=== PATIENT | male | born 1985 | race African-American/Black ===

== ENCOUNTER 2019-01-17 23:48 | Inpatient (IN) | payer SELFPAY ==
--- NOTE | 2019-01-18 00:04 | EKG REPORT ---
SEVERITY:- ABNORMAL ECG - SINUS RHYTHM LVH WITH IVCD AND SECONDARY REPOL ABNRM : Confirmed by: Blessing Ballesteros 18-Jan-2019 00:02:55
[2019-01-18 00:58] LABS: APPEARANCE,URINE CLEAR; BILIRUBIN,URINE NEGATIVE (NEGATIVE); COLOR,URINE YELLOW; GLUCOSE, URINE NEGATIVE (NEGATIVE); KETONES,URINE NEGATIVE (NEGATIVE); LEUKOCYTE ESTERASE,URINE NEGATIVE (NEGATIVE); NITRITE,URINE NEGATIVE (NEGATIVE); PROTEIN,URINE 30 mg/dL (NEGATIVE); URINE SPECIFIC GRAVITY 1.012; UROBILINOGEN,URINE NEGATIVE mg/dL (<2.0)
[2019-01-18] MEDS ORDERED: IPRATROPIUM/ALBUTEROL 0.5-2.5 MG/3 ML AMPUL NEB ONE (05:30)
--- NOTE | 2019-01-18 05:40 | ER Document Report ---
ED Medical Screen (RME) - General Chief Complaint: Chest Pain > 30 Stated Complaint: CHEST PAIN Time Seen by Provider: 01/18/19 05:23 Notes: 33-year-old male with chief complaint of pain in his abdomen, and, pain in his chest, and shortness of breath. Symptoms have been going on mildly for 2 days, worse tonight. Denies fever, cough. He states he has a history of CHF, hypertension, and asthma. TRAVEL OUTSIDE OF THE [place] IN LAST 30 DAYS: No - Related Data Allergies/Adverse Reactions: shellfish derived Allergy (Verified 01/18/19 05:37) Physical Exam - Vital signs Vitals: Temp Pulse Resp BP Pulse Ox 98.0 F 89 14 160/108 H 97 01/18/19 00:08 01/18/19 00:08 01/18/19 00:08 01/18/19 00:08 01/18/19 00:08 - Respiratory Breath sounds: Wheezing - Faint expiratory wheezes heard throughout. No tachypnea. No labored breathing. No rales noted. Course - Re-evaluation Re-evalutation: Patient with some expiratory wheezes on exam. Tenderness in the upper abdomen. No overt rales or lower extremity swelling noted. Workup pending. I have greeted and performed a rapid initial assessment of this patient. A comprehensive ED assessment and evaluation of the patient, analysis of test results and completion of the medical decision making process will be conducted by additional ED providers. - Vital Signs Vital signs: Temp Pulse Resp BP Pulse Ox 98.0 F 89 14 160/108 H 97 01/18/19 00:08 01/18/19 00:08 01/18/19 00:08 01/18/19 00:08 01/18/19 00:08 - Laboratory Laboratory results interpreted by me: 01/18/19 00:30 Urine Protein 30 H
[2019-01-18 05:48] LABS: ALANINE AMINOTRANSFERASE 24 U/L (21-72); ALBUMIN 4.1 g/dL (3.5-5.0); ALKALINE PHOSPHATASE 37 U/L (38-126); ANION GAP 7 (5-19); ASPARTATE AMINO TRANSFERASE 28 U/L (17-59); BILIRUBIN,DIRECT 0.3 mg/dL (0.0-0.4); BLOOD UREA NITROGEN 17 mg/dL (7-20); CALCIUM 9.4 mg/dL (8.4-10.2); CARBON DIOXIDE 26 mmol/L (22-30); CHLORIDE 107 mmol/L (98-107); GLUCOSE 100 mg/dL (75-110); POTASSIUM 4.1 mmol/L (3.6-5.0); SODIUM 140.3 mmol/L (137-145); TOTAL PROTEIN 7.4 g/dL (6.3-8.2)
[2019-01-18 05:55] LABS: ABSOLUTE BASOPHILS # (AUTO) 0.1 10^3/uL (0.0-0.2); ABSOLUTE LYMPHOCYTES (AUTO) 1.4 10^3/uL (0.5-4.7); ABSOLUTE MONOCYTES (AUTO) 0.5 10^3/uL (0.1-1.4); BASOPHILS % (AUTO) 0.7 % (0-2); EOSINOPHILS % (AUTO) 0.6 % (0-6); HEMATOCRIT 36.7 % (37.9-51.0); LYMPHOCYTES % (AUTO) 17.9 % (13-45); MEAN CORPUSCULAR HEMOGLOBIN 27.7 pg (27.0-33.4); MEAN CORPUSCULAR HGB CONC 32.8 g/dL (32.0-36.0); MEAN CORPUSCULAR VOLUME 84 fl (80-97); MONOCYTES % (AUTO) 5.7 % (3-13); PLATELET COUNT 254 10^3/uL (150-450); RED BLOOD COUNT 4.35 10^6/uL (4.35-5.55); RED CELL DISTRIBUTION WIDTH 14.5 % (11.5-14.0); SEGMENTED NEUTROPHILS % (AUTO) 75.1 % (42-78); TOTAL CELLS COUNTED % (AUTO) 100 %
[2019-01-18 05:59] LABS: NT PRO BNP 2250 pg/mL (<125)
[2019-01-18 06:01] LABS: TROPONIN I < 0.012 ng/mL
--- NOTE | 2019-01-18 06:09 | RADIOLOGY REPORT (SQ) ---
CLINICAL HISTORY: shortness of breath COMPARISON: None. TECHNIQUE: XR CHEST 1 VIEW 01/18/2019 5:30 AM CDT FINDINGS: The heart is borderline in size. Lungs are clear without consolidation, atelectasis, mass or edema. There is no pleural effusion. There is no pneumothorax. There are no acute osseous findings. IMPRESSION: Clear lungs.
[2019-01-18] MEDS ORDERED: NITROGLYCERIN 2% OINTMENT 1 GM PACKET TP ONE (06:32)
[2019-01-18] MEDS ORDERED: FUROSEMIDE INJ/PF 20 MG/2 ML SDV IV ONE (06:32)
[2019-01-18] MEDS ORDERED: ACETAMINOPHEN 325 MG TABLET PO ONE (06:32)
--- NOTE | 2019-01-18 06:36 | ER Document Report ---
ED Cardiac - General Chief Complaint: Chest Pain > 30 Stated Complaint: CHEST PAIN Time Seen by Provider: 01/18/19 05:23 Notes: 33-year-old male to the emergency department chief complaint of chest pain. Patient has long-standing history of uncontrolled hypertension. History of CHF. Here from out of town. Denies any tobacco or drug use. States he began to have significant chest pain last night and has continued throughout the morning. Still having chest pain at this time. Takes medication for his blood pressure but does not know the names. Denies any other major symptoms at this time. TRAVEL OUTSIDE OF THE [place] IN LAST 30 DAYS: No - HPI Patient complains to provider of: Chest pain, Chest tightness Was the onset of pain: Gradual Is the pain a: Chronic problem Quality of pain: Constant Severity now: Moderate Severity at worst: Moderate Pain level currently: 3 Cardiac risk factors: Hypertension, Hx CHF Positive cardiac history: Yes - Related Data Allergies/Adverse Reactions: shellfish derived Allergy (Verified 01/18/19 05:37) Past Medical History - General Information source: Patient - Social History Smoking Status: Current Every Day Smoker Cigarette use (# per day): Yes Frequency of alcohol use: None Drug Abuse: None Lives with: Family Family History: Hypertension Patient has suicidal ideation: No Patient has homicidal ideation: No - Past Medical History Cardiac Medical History: Reports: Hx Heart Attack - 2019 Renal/ Medical History: Denies: Hx Peritoneal Dialysis Past Surgical History: Reports: Hx Cardiac Catheterization Review of Systems - Review of Systems Notes: Constitutional: denies: Chills, Diaphoresis, Fever, Malaise, Weakness EENT: denies: Eye discharge, Blurred vision, Tearing, Double vision, Nose congestion, Nose discharge, Throat swelling, Mouth pain Cardiovascular: denies: Palpitations, Heart racing, Orthopnea,+ Dyspnea, +Chest pain Respiratory: denies: Cough, Hurts to breathe, Wheezing, +Shortness of breath Gastrointestinal: denies: Abdominal pain, Diarrhea, Nausea, Vomiting, Black stools, bright red blood in stool Genitourinary: denies: Burning, Dysuria, Discharge, Frequency, Flank pain, Hematuria Musculoskeletal: denies: Joint pain, Joint swelling, Muscle pain, Muscle stiffness, back pain Hematologic/Lymphatic: denies: Anemia, Easy bleeding, Easy bruising, Blood clots Neurological/Psychological: denies: Confusion, Dementia, Depression, Loss of consciousness Skin: No lesions, no masses, no skin breakdown, no abscesses Physical Exam - Vital signs Vitals: Temp Pulse Resp BP Pulse Ox 98.0 F 89 14 160/108 H 97 01/18/19 00:08 01/18/19 00:08 01/18/19 00:08 01/18/19 00:08 01/18/19 00:08 Interpretation: Hypertensive - General General appearance: Appears well, Alert - HEENT Head: Normocephalic, Atraumatic Eyes: Normal Pupils: PERRL - Respiratory Respiratory status: No respiratory distress Chest status: Nontender Breath sounds: Normal Chest palpation: Normal - Cardiovascular Rhythm: Regular Heart sounds: Normal auscultation Murmur: No - Abdominal Inspection: Normal Distension: No distension Bowel sounds: Normal Tenderness: Nontender Organomegaly: No organomegaly - Back Back: Normal, Nontender - Extremities General upper extremity: Normal inspection, Nontender, Normal color, Normal ROM, Normal temperature General lower extremity: Normal inspection, Nontender, Normal color, Normal ROM, Normal temperature, Normal weight bearing. No: Bebo's sign - Neurological Neuro grossly intact: Yes Cognition: Normal Orientation: AAOx4 Jefferson Coma Scale Eye Opening: Spontaneous Anel Coma Scale Verbal: Oriented Jefferson Coma Scale Motor: Obeys Commands Anel Coma Scale Total: 15 Speech: Normal Motor strength normal: LUE, RUE, LLE, RLE Sensory: Normal - Psychological Associated symptoms: Normal affect, Normal mood - Skin Skin Temperature: Warm Skin Moisture: Dry Skin Color: Normal Course - Re-evaluation Re-evalutation: 01/18/19 10:07 Patient has significant hypertension with significant LVH and T wave inversions with some mild ST segment depression in the anterior lateral leads. High risk patient. Very young and currently in congestive heart failure. The patient's if not more. I will consider this a hypertensive emergency in the setting of chest pain. I have given him nitroglycerin as well as Lasix. He is diuresing well. I have consulted with the hospitalist. At this time will admit to the hospitalist in stable condition. Patient has had 2 sets of cardiac labs based on hospitalist request for second troponin before admitting here. Chest x-ray he does have some cardiomegaly but no signs of florid failure. His mediastinum looks normal. 01/18/19 10:09 Laboratory 01/18/19 01/18/19 01/18/19 00:30 05:05 05:05 WBC 8.0 RBC 4.35 Hgb 12.0 L Hct 36.7 L MCV 84 MCH 27.7 MCHC 32.8 RDW 14.5 H Plt Count 254 Seg Neutrophils % 75.1 Lymphocytes % 17.9 Monocytes % 5.7 Eosinophils % 0.6 Basophils % 0.7 Absolute Neutrophils 6.0 Absolute Lymphocytes 1.4 Absolute Monocytes 0.5 Absolute Eosinophils 0.0 Absolute Basophils 0.1 Sodium 140.3 Potassium 4.1 Chloride 107 Carbon Dioxide 26 Anion Gap 7 BUN 17 Creatinine 1.43 H Est GFR ( Amer) > 60 Est GFR (Non-Af Amer) 57 L Glucose 100 Calcium 9.4 Total Bilirubin 2.0 H Direct Bilirubin 0.3 Neonat Total Bilirubin Not Reportable Neonat Direct Bilirubin Not Reportable Neonat Indirect Bili Not Reportable AST 28 ALT 24 Alkaline Phosphatase 37 L Troponin I NT-Pro-B Natriuret Pep Total Protein 7.4 Albumin 4.1 Lipase 91.0 Urine Color YELLOW Urine Appearance CLEAR Urine pH 6.0 Ur Specific [place] 1.012 Urine Protein 30 H Urine Glucose (UA) NEGATIVE Urine Ketones NEGATIVE Urine Blood NEGATIVE Urine Nitrite NEGATIVE Urine Bilirubin NEGATIVE Urine Urobilinogen NEGATIVE Ur Leukocyte Esterase NEGATIVE Urine WBC (Auto) 1 Urine RBC (Auto) 1 U Hyaline Cast (Auto) 1 Urine Bacteria (Auto) Urine Red Cell Clumps Urine WBC Clumps Squamous Epi Cells Auto U Non-Squamous Epis Auto Calcium Carbonate Cryst Calcium Phosphate Cryst Calcium Oxalate Cr Auto Leucine Crystals Cystine Crystals Uric Acid Cryst (Auto) Triple Phos Cryst (Auto) Tyrosine Crystals Amorphous Sediment Auto Cellular Casts Epithelial Casts (Auto) Fatty Casts Granular Casts (Auto) Waxy Casts (Auto) Broad Casts RBC Casts (Auto) WBC Casts (Auto) Urine Mucus (Auto) RARE U Trichomonas (Auto) Ur Yeast w Hyphae Urine Yeast (Budding) Urine Ascorbic Acid NEGATIVE Urine Opiates Screen Urine Methadone Screen Ur Barbiturates Screen Ur Phencyclidine Scrn Ur Amphetamines Screen U Benzodiazepines Scrn Urine Cocaine Screen U Marijuana (THC) Screen 01/18/19 01/18/19 01/18/19 05:05 06:55 06:55 WBC RBC Hgb Hct MCV MCH MCHC RDW Plt Count Seg Neutrophils % Lymphocytes % Monocytes % Eosinophils % Basophils % Absolute Neutrophils Absolute Lymphocytes Absolute Monocytes Absolute Eosinophils Absolute Basophils Sodium Potassium Chloride Carbon Dioxide Anion Gap BUN Creatinine Est GFR ( Amer) Est GFR (Non-Af Amer) Glucose Calcium Total Bilirubin Direct Bilirubin Neonat Total Bilirubin Neonat Direct Bilirubin Neonat Indirect Bili AST ALT Alkaline Phosphatase Troponin I < 0.012 NT-Pro-B Natriuret Pep 2250 H Total Protein Albumin Lipase Urine Color Cancelled Urine Appearance Cancelled Urine pH Cancelled Ur Specific [place] Cancelled Urine Protein Cancelled Urine Glucose (UA) Cancelled Urine Ketones Cancelled Urine Blood Cancelled Urine Nitrite Cancelled Urine Bilirubin Cancelled Urine Urobilinogen Cancelled Ur Leukocyte Esterase Cancelled Urine WBC (Auto) Cancelled Urine RBC (Auto) Cancelled U Hyaline Cast (Auto) Cancelled Urine Bacteria (Auto) Cancelled Urine Red Cell Clumps Cancelled Urine WBC Clumps Cancelled Squamous Epi Cells Auto Cancelled U Non-Squamous Epis Auto Cancelled Calcium Carbonate Cryst Cancelled Calcium Phosphate Cryst Cancelled Calcium Oxalate Cr Auto Cancelled Leucine Crystals Cancelled Cystine Crystals Cancelled Uric Acid Cryst (Auto) Cancelled Triple Phos Cryst (Auto) Cancelled Tyrosine Crystals Cancelled Amorphous Sediment Auto Cancelled Cellular Casts Cancelled Epithelial Casts (Auto) Cancelled Fatty Casts Cancelled Granular Casts (Auto) Cancelled Waxy Casts (Auto) Cancelled Broad Casts Cancelled RBC Casts (Auto) Cancelled WBC Casts (Auto) Cancelled Urine Mucus (Auto) Cancelled U Trichomonas (Auto) Cancelled Ur Yeast w Hyphae Cancelled Urine Yeast (Budding) Cancelled Urine Ascorbic Acid Cancelled Urine Opiates Screen NEGATIVE Urine Methadone Screen NEGATIVE Ur Barbiturates Screen NEGATIVE Ur Phencyclidine Scrn NEGATIVE Ur Amphetamines Screen NEGATIVE U Benzodiazepines Scrn NEGATIVE Urine Cocaine Screen NEGATIVE U Marijuana (THC) Screen NEGATIVE 01/18/19 08:50 WBC RBC Hgb Hct MCV MCH MCHC RDW Plt Count Seg Neutrophils % Lymphocytes % Monocytes % Eosinophils % Basophils % Absolute Neutrophils Absolute Lymphocytes Absolute Monocytes Absolute Eosinophils Absolute Basophils Sodium Potassium Chloride Carbon Dioxide Anion Gap BUN Creatinine Est GFR ( Amer) Est GFR (Non-Af Amer) Glucose Calcium Total Bilirubin Direct Bilirubin Neonat Total Bilirubin Neonat Direct Bilirubin Neonat Indirect Bili AST ALT Alkaline Phosphatase Troponin I < 0.012 NT-Pro-B Natriuret Pep Total Protein Albumin Lipase Urine Color Urine Appearance Urine pH Ur Specific [place] Urine Protein Urine Glucose (UA) Urine Ketones Urine Blood Urine Nitrite Urine Bilirubin Urine Urobilinogen Ur Leukocyte Esterase Urine WBC (Auto) Urine RBC (Auto) U Hyaline Cast (Auto) Urine Bacteria (Auto) Urine Red Cell Clumps Urine WBC Clumps Squamous Epi Cells Auto U Non-Squamous Epis Auto Calcium Carbonate Cryst Calcium Phosphate Cryst Calcium Oxalate Cr Auto Leucine Crystals Cystine Crystals Uric Acid Cryst (Auto) Triple Phos Cryst (Auto) Tyrosine Crystals Amorphous Sediment Auto Cellular Casts Epithelial Casts (Auto) Fatty Casts Granular Casts (Auto) Waxy Casts (Auto) Broad Casts RBC Casts (Auto) WBC Casts (Auto) Urine Mucus (Auto) U Trichomonas (Auto) Ur Yeast w Hyphae Urine Yeast (Budding) Urine Ascorbic Acid Urine Opiates Screen Urine Methadone Screen Ur Barbiturates Screen Ur Phencyclidine Scrn Ur Amphetamines Screen U Benzodiazepines Scrn Urine Cocaine Screen U Marijuana (THC) Screen Chest X-Ray 01/18/19 05:30 IMPRESSION: Clear lungs. - Vital Signs Vital signs: Temp Pulse Resp BP Pulse Ox 98.0 F 89 12 177/119 H 97 01/18/19 00:08 01/18/19 00:08 01/18/19 08:00 01/18/19 09:01 01/18/19 08:00 - Laboratory Result Diagrams: 01/18/19 05:05 01/18/19 05:05 Laboratory results interpreted by me: 01/18/19 01/18/19 01/18/19 00:30 05:05 05:05 Hgb 12.0 L Hct 36.7 L RDW 14.5 H Creatinine 1.43 H Est GFR (Non-Af Amer) 57 L Total Bilirubin 2.0 H Alkaline Phosphatase 37 L NT-Pro-B Natriuret Pep Urine Protein 30 H 01/18/19 05:05 Hgb Hct RDW Creatinine Est GFR (Non-Af Amer) Total Bilirubin Alkaline Phosphatase NT-Pro-B Natriuret Pep 2250 H Urine Protein - EKG Interpretation by Mt EKG shows normal: Sinus rhythm, QRS Complexes. abnormal: ST-T Waves - T wave inversions anterior lateral leads. Voltage: Consistant with LVH - Secondary repolarization abnormality Critical Care Note - Critical Care Note Total time excluding time spent on procedures (mins): 45 Comments: Hypertensive emergency, chest pain Discharge - Discharge Clinical Impression: Hypertensive emergency without congestive heart failure Condition: Good Disposition: ADMITTED INPATIENT Admitting Provider: Jessy (Hospitalist) Unit Admitted: [facility]
[2019-01-18 07:20] LABS: URINE AMPHETAMINES SCREEN NEGATIVE; URINE BARBITURATES SCREEN NEGATIVE; URINE BENZODIAZEPINES SCREEN NEGATIVE; URINE COCAINE SCREEN NEGATIVE; URINE MARIJUANA (THC) SCREEN NEGATIVE; URINE METHADONE SCREEN NEGATIVE; URINE PHENCYCLIDINE SCREEN NEGATIVE
[2019-01-18] MEDS ORDERED: NITROGLYCERIN/D5W 50 MG/250 ML RTUINJ IV PRN (11:49)
--- NOTE | 2019-01-18 14:01 | PDOC H&P ---
History of Present Illness Admission Date/PCP: 01/18/19 10:17 Patient complains of: chest pain History of Present Illness: AMIE VARGAS is a 33 year old male with a PMH of HTN, asthma, and personal history of CHF who presented with chest pain and elevated blood pressures. He says he has been having left sided chest pain in the past 3 days, 4/10 in intensity, non-radiating and described as tightness. He also reports it is exertional. He says he has also been short of breath in the same time period when he walks beyond 50 ft. Denies PND or orthopnea. He does report of abdominal bloating as well. Denies history of GERD. In the ER, blood pressures were elevated 201/129. EKG shows T wave inversions on the lateral leads with normal troponins. He was given a dose of Lasix and nitro. Upon my encounter, he is chest pain free and is comfortable. Repeat blood pressure is 175/125. He says he was told by a physician last year that he has CHF but is not able to tell me more details. He does say he had a cath done at [place], [place] in July 2018 and another cath done in [place], [place] in Nov 2017. He says he was told there was some mild disease and did not require any stenting. Past Medical History Cardiac Medical History: Reports: Myocardial Infarction - 2019 Past Surgical History Past Surgical History: Reports: Cardiac Catheterization Social History Lives with: Family Smoking Status: Current Every Day Smoker Family History Family History: Hypertension Parental Family History Reviewed: Yes - mom and dad both had ID-pxt unsure of age when they had ID Children Family History Reviewed: No Sibling(s) Family History Reviewed.: No Medication/Allergy Allergies/Adverse Reactions: shellfish derived Allergy (Verified 01/18/19 05:37) Review of Systems All systems: reviewed and no additional remarkable complaints except as stated - as mentioned in HPI Physical Exam Vital Signs: Temp Pulse Resp BP Pulse Ox 98.0 F 89 13 171/125 H 99 01/18/19 00:08 01/18/19 00:08 01/18/19 11:41 01/18/19 11:41 01/18/19 11:41 Intake & Output 01/17/19 01/18/19 01/19/19 06:59 06:59 06:59 Weight 211 lb 3.245 oz General appearance: PRESENT: no acute distress, well-developed, well-nourished Head exam: PRESENT: atraumatic, normocephalic Eye exam: PRESENT: conjunctiva pink, EOMI, PERRLA. ABSENT: scleral icterus Ear exam: PRESENT: normal external ear exam Mouth exam: PRESENT: moist, tongue midline Neck exam: ABSENT: carotid bruit, JVD, lymphadenopathy, thyromegaly Respiratory exam: PRESENT: clear to auscultation curtis. ABSENT: rales, rhonchi, wheezes Cardiovascular exam: PRESENT: RRR. ABSENT: diastolic murmur, rubs, systolic murmur Pulses: PRESENT: normal dorsalis pedis pul GI/Abdominal exam: PRESENT: normal bowel sounds, soft. ABSENT: distended, guarding, mass, organolmegaly, rebound, tenderness Rectal exam: PRESENT: deferred Neurological exam: PRESENT: alert, awake, oriented to person, oriented to place, oriented to time, oriented to situation, CN II-XII grossly intact. ABSENT: motor sensory deficit Results Laboratory Results: 01/18/19 05:05 01/18/19 05:05 01/18/19 01/18/19 01/18/19 00:30 05:05 05:05 WBC 8.0 RBC 4.35 Hgb 12.0 L Hct 36.7 L MCV 84 MCH 27.7 MCHC 32.8 RDW 14.5 H Plt Count 254 Seg Neutrophils % 75.1 Lymphocytes % 17.9 Monocytes % 5.7 Eosinophils % 0.6 Basophils % 0.7 Absolute Neutrophils 6.0 Absolute Lymphocytes 1.4 Absolute Monocytes 0.5 Absolute Eosinophils 0.0 Absolute Basophils 0.1 Sodium 140.3 Potassium 4.1 Chloride 107 Carbon Dioxide 26 Anion Gap 7 BUN 17 Creatinine 1.43 H Est GFR ( Amer) > 60 Est GFR (Non-Af Amer) 57 L Glucose 100 Calcium 9.4 Total Bilirubin 2.0 H AST 28 ALT 24 Alkaline Phosphatase 37 L Total Protein 7.4 Albumin 4.1 Lipase 91.0 Urine Color YELLOW Urine Appearance CLEAR Urine pH 6.0 Ur Specific [place] 1.012 Urine Protein 30 H Urine Glucose (UA) NEGATIVE Urine Ketones NEGATIVE Urine Blood NEGATIVE Urine Nitrite NEGATIVE Ur Leukocyte Esterase NEGATIVE Urine WBC (Auto) 1 Urine RBC (Auto) 1 01/18/19 06:55 WBC RBC Hgb Hct MCV MCH MCHC RDW Plt Count Seg Neutrophils % Lymphocytes % Monocytes % Eosinophils % Basophils % Absolute Neutrophils Absolute Lymphocytes Absolute Monocytes Absolute Eosinophils Absolute Basophils Sodium Potassium Chloride Carbon Dioxide Anion Gap BUN Creatinine Est GFR ( Amer) Est GFR (Non-Af Amer) Glucose Calcium Total Bilirubin AST ALT Alkaline Phosphatase Total Protein Albumin Lipase Urine Color Cancelled Urine Appearance Cancelled Urine pH Cancelled Ur Specific [place] Cancelled Urine Protein Cancelled Urine Glucose (UA) Cancelled Urine Ketones Cancelled Urine Blood Cancelled Urine Nitrite Cancelled Ur Leukocyte Esterase Cancelled Urine WBC (Auto) Cancelled Urine RBC (Auto) Cancelled 01/18/19 01/18/19 05:05 08:50 Troponin I < 0.012 < 0.012 NT-Pro-B Natriuret Pep 2250 H Impressions: Chest X-Ray 01/18/19 05:30 IMPRESSION: Clear lungs. Assessment and Plan - Diagnosis (1) Hypertensive emergency without congestive heart failure Is this a current diagnosis for this admission?: Yes Plan: Will start patient on nitroglycerin drip. He says he takes medications for his HTN but is not able to recall them. Will have pharmacy verify home meds. (2) CHF (congestive heart failure) Qualifiers: Heart failure chronicity: unspecified Is this a current diagnosis for this admission?: Yes Plan: He does not appear to be in acute CHF. He says he had an echo done in July 2018. Will request previous EKGs, echo and cath reports from both hospitals mentioned above. - Time Time Spent with patient: 25-34 minutes
[2019-01-18] MEDS: PANTOPRAZOLE SODIUM 40 MG TABLET.DR PO SCH (16:28)
[2019-01-18] MEDS ORDERED: METOPROLOL TARTRATE PF/INJ 5 MG/5 ML SDV IV ONE ×2 (20:30→21:00)
[2019-01-18] MEDS: HYDRALAZINE HCL INJ/PF 20 MG/1 ML SDV IV PRN (21:32)
[2019-01-19] MEDS ORDERED: ACETAMINOPHEN 325 MG TABLET PO PRN (01:57)
[2019-01-19] MEDS: PANTOPRAZOLE SODIUM 40 MG TABLET.DR PO SCH (05:46)
[2019-01-19] MEDS ORDERED: METOPROLOL TARTRATE 100 MG TABLET PO ONE (09:45)
[2019-01-19] MEDS ORDERED: HYDRALAZINE HCL 50 MG TABLET PO ONE (09:46)
[2019-01-19] MEDS: FONDAPARINUX SODIUM INJ 2.5 MG/0.5 ML DISP.SYRIN SUBCUT SCH ×2 (11:00→11:07)
[2019-01-19] MEDS: HYDRALAZINE HCL 50 MG TABLET PO SCH ×2 (13:16→21:19)
--- NOTE | 2019-01-19 14:02 | PDOC PROGRESS REPORT ---
Subjective Progress Note for:: 01/19/19 Subjective:: This is 73 years old black male patient with past medical history of obesity, hypertension and history of congestive heart failure as reported by the patient himself presented with chief complaint of chest pain. The patient described the chest pain stabbing type localized to his left side nonradiating. When he presented to ER his blood pressure was 175/125. Patient has been started on nitroglycerin drip. This morning when I see the patient his blood pressure t rended down to 170/115 he is given metoprolol 100 mg and hydralazine 50 mg stat. His latest blood pressure is 150/96. The patient claims that chest pain has subsided. Reason For Visit: HTN EMERGENCY Physical Exam Vital Signs: Temp Pulse Resp BP Pulse Ox 98.2 F 86 16 171/110 H 98 01/19/19 08:31 01/19/19 11:30 01/19/19 05:52 01/19/19 11:30 01/19/19 08:31 Intake & Output 01/18/19 01/19/19 01/20/19 06:59 06:59 06:59 Intake Total 166 Balance 166 Weight 95.8 kg 93.8 kg General appearance: PRESENT: no acute distress, obese, well-developed, well- nourished Head exam: PRESENT: atraumatic, normocephalic Eye exam: PRESENT: conjunctiva pink, EOMI, PERRLA. ABSENT: scleral icterus Ear exam: PRESENT: normal external ear exam Mouth exam: PRESENT: moist, tongue midline Neck exam: ABSENT: carotid bruit, JVD, lymphadenopathy, thyromegaly Respiratory exam: PRESENT: clear to auscultation curtis. ABSENT: rales, rhonchi, wheezes Cardiovascular exam: PRESENT: RRR. ABSENT: diastolic murmur, rubs, systolic murmur Pulses: PRESENT: normal dorsalis pedis pul Vascular exam: PRESENT: normal capillary refill GI/Abdominal exam: PRESENT: normal bowel sounds, soft. ABSENT: distended, guarding, mass, organolmegaly, rebound, tenderness Rectal exam: PRESENT: deferred Extremities exam: PRESENT: full ROM. ABSENT: calf tenderness, clubbing, pedal edema Neurological exam: PRESENT: alert, awake, oriented to person, oriented to place, oriented to time, oriented to situation, CN II-XII grossly intact. ABSENT: motor sensory deficit Psychiatric exam: PRESENT: appropriate affect, normal mood. ABSENT: homicidal ideation, suicidal ideation Skin exam: PRESENT: dry, intact, warm. ABSENT: cyanosis, rash Results Laboratory Results: 01/18/19 05:05 01/18/19 05:05 01/18/19 01/18/19 05:05 08:50 Troponin I < 0.012 < 0.012 NT-Pro-B Natriuret Pep 2250 H Impressions: Chest X-Ray 01/18/19 05:30 IMPRESSION: Clear lungs. Assessment and Plan - Diagnosis (1) Hypertensive emergency without congestive heart failure Is this a current diagnosis for this admission?: Yes Plan: Patient has been on hydralazine metoprolol p.o. I will taper and discontinue the nitro drip. If patient continues to have persistent accelerated hypertension we will check his renal arterial duplex. (2) History of CHF (congestive heart failure) Is this a current diagnosis for this admission?: Yes Plan: Patient reports this has CHF. He does not have any shortness of breath or fascial or leg edema. Echocardiogram requested. (3) Nonobstructive coronary artery disease Is this a current diagnosis for this admission?: Yes Plan: Patient reported he has cats in 2018 in November and July was her reportedly mild obstruction (4) Obesity (BMI 30.0-34.9) Is this a current diagnosis for this admission?: Yes Plan: Lifestyle modification advised.
[2019-01-19] MEDS: METOPROLOL TARTRATE 50 MG TABLET PO SCH (21:20)
[2019-01-20] MEDS: HYDRALAZINE HCL INJ/PF 20 MG/1 ML SDV IV PRN (03:29)
[2019-01-20] MEDS: HYDRALAZINE HCL 50 MG TABLET PO SCH ×3 (05:52→21:06)
[2019-01-20] MEDS: PANTOPRAZOLE SODIUM 40 MG TABLET.DR PO SCH (05:52)
[2019-01-20] MEDS: FONDAPARINUX SODIUM INJ 2.5 MG/0.5 ML DISP.SYRIN SUBCUT SCH (08:46)
[2019-01-20] MEDS ORDERED: CLONIDINE HCL 0.2 MG TABLET PO ONE (10:30)
[2019-01-20] MEDS: METOPROLOL TARTRATE 50 MG TABLET PO SCH ×2 (10:34→21:05)
[2019-01-20] MEDS ORDERED: HYDROCHLOROTHIAZIDE 50 MG TABLET PO ONE (15:00)
--- NOTE | 2019-01-20 16:08 | PDOC PROGRESS REPORT ---
Subjective Progress Note for:: 01/20/19 Subjective:: I seen patient resting in bed comfortably. He states his chest pain is improving. Despite being on metoprolol 50 mg twice daily and hydralazine 50 mg 3 times a day his blood pressure is still on the higher side this morning when I evaluated him his blood pressure which was 146/115. I gave him a stat dose of clonidine 0.2 mg p.o. I added to his regimen hydrochlorothiazide 25 mg p.o. daily. His potential discharge for tomorrow. If his blood pressure is well co ntrolled Reason For Visit: HTN EMERGENCY Physical Exam Vital Signs: Temp Pulse Resp BP Pulse Ox 97.9 F 79 12 141/90 H 99 01/20/19 11:33 01/20/19 11:33 01/20/19 11:33 01/20/19 11:33 01/20/19 11:33 Intake & Output 01/19/19 01/20/19 01/21/19 06:59 06:59 06:59 Intake Total 166 2604 118 Output Total 0 Balance 166 2604 118 Weight 93.8 kg 93.8 kg General appearance: PRESENT: no acute distress, well-developed, well-nourished Head exam: PRESENT: atraumatic, normocephalic Eye exam: PRESENT: conjunctiva pink, EOMI, PERRLA. ABSENT: scleral icterus Ear exam: PRESENT: normal external ear exam Mouth exam: PRESENT: moist, tongue midline Neck exam: ABSENT: carotid bruit, JVD, lymphadenopathy, thyromegaly Respiratory exam: PRESENT: clear to auscultation curtis. ABSENT: rales, rhonchi, wheezes Cardiovascular exam: PRESENT: RRR. ABSENT: diastolic murmur, rubs, systolic murmur Pulses: PRESENT: normal dorsalis pedis pul Vascular exam: PRESENT: normal capillary refill GI/Abdominal exam: PRESENT: normal bowel sounds, soft. ABSENT: distended, guarding, mass, organolmegaly, rebound, tenderness Rectal exam: PRESENT: deferred Extremities exam: PRESENT: full ROM. ABSENT: calf tenderness, clubbing, pedal edema Neurological exam: PRESENT: alert, awake, oriented to person, oriented to place, oriented to time, oriented to situation, CN II-XII grossly intact. ABSENT: motor sensory deficit Psychiatric exam: PRESENT: appropriate affect, normal mood. ABSENT: homicidal ideation, suicidal ideation Skin exam: PRESENT: dry, intact, warm. ABSENT: cyanosis, rash Results Laboratory Results: 01/18/19 05:05 01/18/19 05:05 01/18/19 01/18/19 05:05 08:50 Troponin I < 0.012 < 0.012 NT-Pro-B Natriuret Pep 2250 H Impressions: Chest X-Ray 01/18/19 05:30 IMPRESSION: Clear lungs. Assessment and Plan - Diagnosis (1) Hypertensive emergency without congestive heart failure Is this a current diagnosis for this admission?: Yes Plan: Relatively improving (2) History of CHF (congestive heart failure) Is this a current diagnosis for this admission?: Yes Plan: Patient told me he does not have actual congestive heart failure but he was told he has a risk factor. (3) Nonobstructive coronary artery disease Is this a current diagnosis for this admission?: Yes Plan: Patient reported he has cats in 2018 in November and July was her reportedly mild obstruction (4) Obesity (BMI 30.0-34.9) Is this a current diagnosis for this admission?: Yes Plan: Lifestyle modification advised.
--- NOTE | 2019-01-20 21:00 | XCELERA REPORT ---
[address] [address] Transthoracic Echocardiogram Report Name: AMIE VARGAS Age: 33 yrs Gender: Male : 1985 Patient Status: Inpatient Patient Location: [address] [place] [address] Study Date: 01/19/2019 07:44 PM Height: 66 in Weight: 206 lb BSA: 2.0 m2 Procedure: A two-dimensional transthoracic echocardiogram with color flow and Doppler was performed. Study Quality: Fair. Reason For Study: CHF History: CHF. Ordering Physician: SUNIL FERNANDEZ Performed By: Amelia Celis Interpretation Summary The left ventricle is moderately dilated. LV EF is Less than 15% Left ventricular systolic function is severely reduced. There is severe global hypokinesis of the left ventricle. There is no thrombus. No ASD ,VSD , or PFO seen. The right ventricle is normal in size and function. The right atrium is normal. The left atrium is moderately dilated. There is no evidence of mitral valve prolapse. There is no vegetation seen on the mitral valve. There is no mitral valve stenosis. There is a mild amount of mitral regurgitation There is no aortic valvular vegetation. There is no aortic valve stenosis There is no LVOT obstruction. No aortic regurgitation is present. There is no tricuspid stenosis. There is a trace amount of tricuspid regurgitation There is mild pulmonary hypertension by echo RVSP is 32 to 37 mm of Hg , with RA mean of 5 to 10. There is no pulmonic valvular stenosis. There is no pulmonic valvular regurgitation. The aortic root is normal size. The inferior vena cava appeared normal and decreased > 50% with respiration (RAP 5-10 mmHg) There is no pericardial effusion. MMode/2D Measurements & Calculations RVDd: 2.8 cm LVIDd: 6.1 cm FS: 12.4 % Ao root diam: 2.8 cm IVSd: 0.97 cm LVIDs: 5.4 cm EDV(Teich): Ao root area: LVPWd: 1.1 cm 188.0 ml 6.1 cm2 ESV(Teich): LA dimension: 4.7 cm 138.8 ml EF(Teich): 26.2 % LVLd ap4: 7.9 cm SV(MOD-sp4): EDV(MOD-sp4): 24.0 ml 85.0 ml LVLs ap4: 7.6 cm ESV(MOD-sp4): 61.0 ml EF(MOD-sp4): 28.2 % Doppler Measurements & Calculations MV E max chanel: MV P1/2t max chanel: Ao V2 max: LV V1 max P.9 cm/sec 115.4 cm/sec 120.2 cm/sec 4.6 mmHg MV A max chanel: MV P1/2t: 46.2 msec Ao max P.8 mmHgLV V1 max: 51.8 cm/sec MVA(P1/2t): 4.8 cm2 107.6 cm/sec MV E/A: 1.7 MV dec slope: 732.2 cm/sec2 MV dec time: 0.15 sec PA V2 max: TR max chanel: MV P1/2t-pr_phl: 69.0 cm/sec 258.9 cm/sec 46.2 msec PA max PG: TR max P.8 mmHg 1.9 mmHg Left Ventricle There is normal left ventricular wall thickness. The left ventricle is moderately dilated. LV EF is Less than 15%. Left ventricular systolic function is severely reduced. There is severe global hypokinesis of the left ventricle. There is no thrombus. No ASD ,VSD , or PFO seen. Right Ventricle The right ventricle is normal in size and function. Atria The right atrium is normal. The left atrium is moderately dilated. Mitral Valve There is no evidence of mitral valve prolapse. There is no vegetation seen on the mitral valve. There is no mitral valve stenosis. There is a mild amount of mitral regurgitation. Aortic Valve There is no aortic valvular vegetation. There is no aortic valve stenosis. There is no LVOT obstruction. No aortic regurgitation is present. Tricuspid Valve There is no tricuspid stenosis. There is a trace amount of tricuspid regurgitation. There is mild pulmonary hypertension by echo. RVSP is 32 to 37 mm of Hg , with RA mean of 5 to 10. Pulmonic Valve There is no pulmonic valvular stenosis. There is no pulmonic valvular regurgitation. Great Vessels The aortic root is normal size. The inferior vena cava appeared normal and decreased > 50% with respiration (RAP 5-10 mmHg). Effusions There is no pericardial effusion. : SUNIL FERNANDEZ > Kelly Kerr
[2019-01-21] MEDS: HYDRALAZINE HCL 50 MG TABLET PO SCH ×3 (05:55→21:15)
[2019-01-21] MEDS: PANTOPRAZOLE SODIUM 40 MG TABLET.DR PO SCH (05:55)
[2019-01-21] MEDS: FONDAPARINUX SODIUM INJ 2.5 MG/0.5 ML DISP.SYRIN SUBCUT SCH (09:50)
[2019-01-21] MEDS: HYDROCHLOROTHIAZIDE 25 MG TABLET PO SCH (09:54)
[2019-01-21] MEDS ORDERED: METOPROLOL TARTRATE 50 MG TABLET PO SCH (10:00)
[2019-01-21] MEDS ORDERED: METOPROLOL TARTRATE 100 MG TABLET PO SCH (10:00)
[2019-01-21] MEDS ORDERED: CARVEDILOL 12.5 MG TABLET PO ONE ×2 (10:45→14:45)
[2019-01-21] MEDS ORDERED: LISINOPRIL 10 MG TABLET PO ONE ×2 (10:45→14:45)
--- NOTE | 2019-01-21 12:24 | PDOC CONSULTATION ---
Consultation Consult Date: 01/21/19 Consult reason:: congestive heart failure History of Present Illness Admission Date/PCP: 01/18/19 10:17 History of Present Illness: AMIE VARGAS is a 33 year old male is a very pleasant male with PMH of systolic heart failure diagnosed around a year ago in [place], HTN was admitted with c/o chest pain fwq days ago and had uncontrolled HTN on admission. His medical therapy has been adjusted and he had an echo which showed LVEF < 15%. WE were consulted today for assistance with co-management of CHF. Pt seen at bedside and claims after his diagnosis of heart failure he has had a cardiac cath somewhere in [place] and was told he did not have any significant blockage in his arteries. He was never told he will need an ICD and since he says he keeps moving from place to place because of his work with [employer] he does not follow with any regular physician. He claims he was developing distension of his abdomen lately which made him short of breath and so he came in for admission. He denies any antonio chest pain/palpitations/ dizziness/ swelling of legs. He denies missing his meds. He claims he feels much better now. Past Medical History Cardiac Medical History: Reports: Congestive Heart Failure, Myocardial Infarction - 2019, Hypertension Psychiatric Medical History: Denies: Depression Past Surgical History Past Surgical History: Reports: Cardiac Catheterization Social History Lives with: Family Smoking Status: Former Smoker Last Time Smoked: 2018 Frequency of Alcohol Use: Occasional Hx Recreational Drug Use: No Drugs: None Hx Prescription Drug Abuse: No Family History Family History: Hypertension Parental Family History Reviewed: Yes Children Family History Reviewed: No Sibling(s) Family History Reviewed.: Yes Medication/Allergy Home Medications: Carvedilol [Coreg 12.5 mg Tablet] 12.5 mg PO Q12 01/20/19 Furosemide [Lasix 20 mg Tablet] 20 mg PO DAILY 01/20/19 Hydralazine HCl [Apresoline 50 mg Tablet] 50 mg PO Q8 01/20/19 Allergies/Adverse Reactions: shellfish derived Allergy (Verified 01/18/19 05:37) Review of Systems Cardiovascular: PRESENT: dyspnea on exertion Respiratory: PRESENT: dyspnea Gastrointestinal: PRESENT: other - abdominal fullness that has improved now Physical Exam Vital Signs: Temp Pulse Resp BP Pulse Ox 97.7 F 82 14 146/98 H 97 01/21/19 08:04 01/21/19 08:04 01/21/19 08:04 01/21/19 08:04 01/21/19 08:04 Intake & Output 01/20/19 01/21/19 01/22/19 06:59 06:59 06:59 Intake Total 2604 1642 Output Total 0 Balance 2604 1642 Weight 93.8 kg 93.6 kg General appearance: PRESENT: no acute distress Head exam: PRESENT: atraumatic, normocephalic Neck exam: PRESENT: full ROM Respiratory exam: PRESENT: clear to auscultation curtis Cardiovascular exam: PRESENT: RRR, systolic murmur Pulses: PRESENT: normal carotid pulses, normal dorsalis pedis pul, +2 pedal pulses bilateral GI/Abdominal exam: PRESENT: normal bowel sounds, soft Results Laboratory Results: 01/18/19 05:05 01/18/19 05:05 01/18/19 01/18/19 05:05 08:50 Troponin I < 0.012 < 0.012 NT-Pro-B Natriuret Pep 2250 H EKG Comments: EKG reviewed and showed sinus rhythm with left ventricular hypertrophy and secondary repolarization changes. Impressions: Chest X-Ray 01/18/19 05:30 IMPRESSION: Clear lungs. Status: Image reviewed by me Assessment & Plan - Diagnosis (1) Chronic combined systolic and diastolic CHF (congestive heart failure) Is this a current diagnosis for this admission?: Yes (2) Hypertension Qualifiers: Hypertension type: unspecified Qualified Code(s): I10 - Essential (primary) hypertension Is this a current diagnosis for this admission?: Yes (3) Chronic kidney disease Qualifiers: Chronic kidney disease stage: unspecified stage Qualified Code(s): N18.9 - Chronic kidney disease, unspecified Is this a current diagnosis for this admission?: Yes - Notes Notes: Reviewed EKG, telemetry, imaging test and labs. 33-year-old -[place] male with combined systolic and diastolic heart failure presumed nonischemic so far based on patient's history and admitted with hypertensive urgency which has improved now. We recommend getting medical records from [place] to review his previous cardiac workup. His telemetry review showed two 3 beat episodes of nonsustained ventricular tachycardia earlier today. We recommend checking electrolytes and thyroid function to ensure no reversible causes for an SVT noted. We reviewed his medications and he is on guideline directed heart failure therapy with aspirin, statin, beta-bogdan, NETO inhibitor, hydralazine and diuretic therapy. Recommend adding nitrate therapy to hydralazine for better afterload reduction. Consideration should be made for evaluation for secondary hypertension as patient is on multiple antihypertensive medications with blood pressure still mildly elevated. Reviewed his current echocardiogram which shows LVEF less than 15% with mild mitral regurgitation. Review of his previous medical records will tell us if his LVEF was less than 35% in the past and then he will be a candidate for implantable cardioverter defibrillator placement now for primary prophylaxis of sudden cardiac . If his EF was above 35% in the past then he should be considered for LifeVest placement for 90 days at the end of which is LVEF should be reevaluated. We discussed at length with patient about his current diagnosis, prognosis and need for optimal medical therapy and healthy lifestyle. Will reevaluate his afterload control in the morning. - Time Time Spent: 50 to 70 Minutes Medications reviewed and adjusted accordingly: Yes
--- NOTE | 2019-01-21 13:20 | PDOC PROGRESS REPORT ---
Subjective Progress Note for:: 01/21/19 Subjective:: Patient seen and examined at bedside. He is awake alert oriented. He reports this is shortness of breath has been subsiding. His echocardiogram reported as left ventricular systolic function severely reduced and there is severe global hypokinesis of left ventricle. His ejection fraction found to be less than 15%. Patient has been evaluated this morning by Dr. Baxter and his input is appreciated. Reason For Visit: HTN EMERGENCY Physical Exam Vital Signs: Temp Pulse Resp BP Pulse Ox 98.0 F 80 17 134/93 H 97 01/21/19 11:42 01/21/19 11:42 01/21/19 11:42 01/21/19 11:42 01/21/19 11:42 Intake & Output 01/20/19 01/21/19 01/22/19 06:59 06:59 06:59 Intake Total 2604 1642 200 Output Total 0 Balance 2604 1642 200 Weight 93.8 kg 93.6 kg General appearance: PRESENT: no acute distress, well-developed, well-nourished Head exam: PRESENT: atraumatic, normocephalic Eye exam: PRESENT: conjunctiva pink, EOMI, PERRLA. ABSENT: scleral icterus Ear exam: PRESENT: normal external ear exam Mouth exam: PRESENT: moist, tongue midline Neck exam: ABSENT: carotid bruit, JVD, lymphadenopathy, thyromegaly Respiratory exam: PRESENT: clear to auscultation curtis. ABSENT: rales, rhonchi, wheezes Cardiovascular exam: PRESENT: RRR. ABSENT: diastolic murmur, rubs, systolic murmur Pulses: PRESENT: normal dorsalis pedis pul Vascular exam: PRESENT: normal capillary refill GI/Abdominal exam: PRESENT: normal bowel sounds, soft. ABSENT: distended, guarding, mass, organolmegaly, rebound, tenderness Rectal exam: PRESENT: deferred Extremities exam: PRESENT: full ROM. ABSENT: calf tenderness, clubbing, pedal edema Neurological exam: PRESENT: alert, awake, oriented to person, oriented to place, oriented to time, oriented to situation, CN II-XII grossly intact. ABSENT: motor sensory deficit Psychiatric exam: PRESENT: appropriate affect, normal mood. ABSENT: homicidal ideation, suicidal ideation Skin exam: PRESENT: dry, intact, warm. ABSENT: cyanosis, rash Results Laboratory Results: 01/18/19 05:05 01/18/19 05:05 01/18/19 01/18/19 05:05 08:50 Troponin I < 0.012 < 0.012 NT-Pro-B Natriuret Pep 2250 H Impressions: Chest X-Ray 01/18/19 05:30 IMPRESSION: Clear lungs. Assessment and Plan - Diagnosis (1) Systolic congestive heart failure Qualifiers: Heart failure chronicity: acute on chronic Qualified Code(s): I50.23 - Acute on chronic systolic (congestive) heart failure Is this a current diagnosis for this admission?: Yes Plan: Patient had a heart catheterization in January in July 2018 and reportedly the result was no obstruction. Most probably patient has nonischemic cardiomyopathy with ejection fraction of less than 15% with severe global hypokinesis of the left ventricle. We will maximize his cardioprotective medications. (2) Hypertensive emergency without congestive heart failure Is this a current diagnosis for this admission?: Yes Plan: His blood pressure is improving. (3) Nonobstructive coronary artery disease Is this a current diagnosis for this admission?: Yes Plan: Patient reported he has cats in 2018 in November and July was her reportedly mild obstruction (4) Obesity (BMI 30.0-34.9) Is this a current diagnosis for this admission?: Yes Plan: Lifestyle modification advised.
[2019-01-21] MEDS: LISINOPRIL 10 MG TABLET PO SCH (21:15)
[2019-01-21] MEDS: CARVEDILOL 12.5 MG TABLET PO SCH (21:15)
[2019-01-21] MEDS: ATORVASTATIN CALCIUM 80 MG TABLET PO SCH (21:15)
[2019-01-21] MEDS ORDERED: ATORVASTATIN CALCIUM 20 MG TABLET PO SCH (22:00)
[2019-01-22] MEDS: PANTOPRAZOLE SODIUM 40 MG TABLET.DR PO SCH (05:16)
[2019-01-22] MEDS: HYDRALAZINE HCL 50 MG TABLET PO SCH ×3 (05:16→21:26)
[2019-01-22] MEDS: FONDAPARINUX SODIUM INJ 2.5 MG/0.5 ML DISP.SYRIN SUBCUT SCH (08:26)
[2019-01-22] MEDS: CARVEDILOL 12.5 MG TABLET PO SCH ×2 (09:44→21:24)
[2019-01-22] MEDS: LISINOPRIL 10 MG TABLET PO SCH ×2 (09:44→21:25)
[2019-01-22] MEDS: HYDROCHLOROTHIAZIDE 25 MG TABLET PO SCH (09:45)
[2019-01-22] MEDS: FUROSEMIDE 40 MG TABLET PO SCH (09:45)
--- NOTE | 2019-01-22 10:48 | PDOC PROGRESS REPORT ---
Subjective Progress Note for:: 01/22/19 Reason For Visit: HTN EMERGENCY Patient seen at bedside and denies any complaints of chest pain or shortness of breath. He denies any swelling in his lower extremities. Physical Exam Vital Signs: Temp Pulse Resp BP Pulse Ox 97.7 F 76 12 158/90 H 97 01/22/19 08:07 01/22/19 08:07 01/22/19 08:07 01/22/19 08:07 01/22/19 08:07 Intake & Output 01/21/19 01/22/19 01/23/19 06:59 06:59 06:59 Intake Total 1642 909 Balance 1642 909 Weight 93.6 kg 92.6 kg General appearance: PRESENT: no acute distress Head exam: PRESENT: atraumatic, normocephalic Neck exam: PRESENT: full ROM Respiratory exam: PRESENT: clear to auscultation curtis Cardiovascular exam: PRESENT: +S1, +S2 Pulses: PRESENT: +2 pedal pulses bilateral GI/Abdominal exam: PRESENT: normal bowel sounds, soft Extremities exam: PRESENT: full ROM Neurological exam: PRESENT: alert, oriented to time, CN II-XII grossly intact Results Laboratory Results: 01/18/19 05:05 01/18/19 05:05 01/18/19 01/18/19 05:05 08:50 Troponin I < 0.012 < 0.012 NT-Pro-B Natriuret Pep 2250 H Impressions: Chest X-Ray 01/18/19 05:30 IMPRESSION: Clear lungs. Assessment & Plan - Diagnosis (1) Chronic combined systolic and diastolic CHF (congestive heart failure) Is this a current diagnosis for this admission?: Yes (2) Hypertension Qualifiers: Hypertension type: unspecified Qualified Code(s): I10 - Essential (primary) hypertension Is this a current diagnosis for this admission?: Yes (3) Chronic kidney disease Qualifiers: Chronic kidney disease stage: unspecified stage Qualified Code(s): N18.9 - Chronic kidney disease, unspecified Is this a current diagnosis for this admission?: Yes - Notes Notes: Patient appears euvolemic on exam with afterload not well controlled yet. Recommended yesterday to add long-acting nitrate to hydralazine for better afterload reduction and spoke to the primary team to add isosorbide dinitrate. Also still awaiting check of electrolytes to ensure serum potassium and magnesium are within normal limits. Reviewed telemetry and no more runs of ventricular tachycardia noted. Patient with asymptomatic sinus bradycardia at night. Recommend LifeVest placement for primary prophylaxis of sudden cardiac and I have filled out the form for LifeVest placement. Still awaiting medical records from [place] to review his last cardiac cath to ensure that he does not have any obstructive coronary artery disease. Patient will need a repeat echocardiogram in 90 days to evaluate need for ICD placement if his EF does not improve above 35%. Continue him on guideline directed heart failure therapy with aspirin, statin, beta-bogdan, NETO inhibitor, diuretic, hydralazine and please add isosorbide dinitrate. I have given patient my information if he wishes to follow with me as an outpatient and [place] or else he is also been provided information about local community health consultant Dr. Kerr and Dr. Whitten as he will need close outpatient follow-up for management of his systolic heart failure and hypertension. - Time Time with patient: 15-25 minutes
[2019-01-22 11:14] LABS: CHOLESTEROL 203.79 mg/dL (0-200); TRIGLYCERIDES 112 mg/dL (<150)
[2019-01-22 11:25] LABS: DIRECT LDL 140 mg/dL (<100)
--- NOTE | 2019-01-22 14:59 | PDOC PROGRESS REPORT ---
Subjective Progress Note for:: 01/22/19 Subjective:: Patient resting in bed comfortably. He has been doing well. He denied shortness of breath or chest pain. Patient is potential discharge for tomorrow after LifeVest placement. Reason For Visit: HTN EMERGENCY Physical Exam Vital Signs: Temp Pulse Resp BP Pulse Ox 97.9 F 75 16 150/92 H 97 01/22/19 11:57 01/22/19 11:57 01/22/19 11:57 01/22/19 11:57 01/22/19 11:57 Intake & Output 01/21/19 01/22/19 01/23/19 06:59 06:59 06:59 Intake Total 1642 909 318 Balance 1642 909 318 Weight 93.6 kg 92.6 kg General appearance: PRESENT: no acute distress Head exam: PRESENT: atraumatic, normocephalic Eye exam: PRESENT: conjunctiva pink, EOMI, PERRLA. ABSENT: scleral icterus Ear exam: PRESENT: normal external ear exam Mouth exam: PRESENT: moist, tongue midline Neck exam: ABSENT: carotid bruit, JVD, lymphadenopathy, thyromegaly Respiratory exam: PRESENT: clear to auscultation curtis. ABSENT: rales, rhonchi, wheezes Cardiovascular exam: PRESENT: RRR. ABSENT: diastolic murmur, rubs, systolic murmur Pulses: PRESENT: normal dorsalis pedis pul Vascular exam: PRESENT: normal capillary refill GI/Abdominal exam: PRESENT: normal bowel sounds, soft. ABSENT: distended, guarding, mass, organolmegaly, rebound, tenderness Rectal exam: PRESENT: deferred Extremities exam: PRESENT: full ROM. ABSENT: calf tenderness, clubbing, pedal edema Neurological exam: PRESENT: alert, awake, oriented to person, oriented to place, oriented to time, oriented to situation, CN II-XII grossly intact. ABSENT: m otor sensory deficit Psychiatric exam: PRESENT: appropriate affect, normal mood. ABSENT: homicidal ideation, suicidal ideation Skin exam: PRESENT: dry, intact, warm. ABSENT: cyanosis, rash Results Laboratory Results: 01/18/19 05:05 01/18/19 05:05 01/22/19 10:45 Triglycerides 112 Cholesterol 203.79 H LDL Cholesterol Direct 140 H VLDL Cholesterol 22.0 HDL Cholesterol 36 L 01/18/19 01/18/19 05:05 08:50 Troponin I < 0.012 < 0.012 NT-Pro-B Natriuret Pep 2250 H Impressions: Chest X-Ray 01/18/19 05:30 IMPRESSION: Clear lungs. Assessment and Plan - Diagnosis (1) Systolic congestive heart failure Qualifiers: Heart failure chronicity: acute on chronic Qualified Code(s): I50.23 - Acute on chronic systolic (congestive) heart failure Is this a current diagnosis for this admission?: Yes Plan: Patient had a heart catheterization in January in July 2018 and reportedly the result was no obstruction. Most probably patient has nonischemic cardiomyopathy with ejection fraction of less than 15% with severe global hypokinesis of the left ventricle. We will maximize his cardioprotective medications. Patient has been evaluated by snuff grinder and screener who recommended LifeVest placement. (2) Hypertensive emergency without congestive heart failure Is this a current diagnosis for this admission?: Yes Plan: His blood pressure is improving. (3) Nonobstructive coronary artery disease Is this a current diagnosis for this admission?: Yes Plan: Patient reported he has cats in 2018 in November and July was her reportedly mild obstruction (4) Obesity (BMI 30.0-34.9) Is this a current diagnosis for this admission?: Yes Plan: Lifestyle modification advised.
[2019-01-22] MEDS ORDERED: ISOSORBIDE DINITRATE 20 MG TABLET PO ONE (16:00)
[2019-01-22] MEDS: ATORVASTATIN CALCIUM 80 MG TABLET PO SCH (21:26)
[2019-01-23] MEDS: HYDRALAZINE HCL 50 MG TABLET PO SCH ×2 (05:27→14:31)
[2019-01-23] MEDS: PANTOPRAZOLE SODIUM 40 MG TABLET.DR PO SCH (05:28)
[2019-01-23] MEDS ORDERED: ISOSORBIDE DINITRATE 20 MG TABLET PO SCH (06:00)
[2019-01-23 07:12] LABS: ANION GAP 10 (5-19); BLOOD UREA NITROGEN 19 mg/dL (7-20); CALCIUM 9.6 mg/dL (8.4-10.2); CARBON DIOXIDE 31 mmol/L (22-30); CHLORIDE 97 mmol/L (98-107); GLUCOSE 98 mg/dL (75-110); POTASSIUM 3.4 mmol/L (3.6-5.0); SODIUM 138.1 mmol/L (137-145)
[2019-01-23] MEDS: FONDAPARINUX SODIUM INJ 2.5 MG/0.5 ML DISP.SYRIN SUBCUT SCH (07:38)
--- NOTE | 2019-01-23 09:51 | PDOC DISCHARGE SUMMARY ---
General - Admit/Disc Date/PCP Admission Date/Primary Care Provider: 01/18/19 10:17 Discharge Date: 01/23/19 - Discharge Diagnosis (1) Systolic congestive heart failure Is this a current diagnosis for this admission?: Yes (2) Hypertensive emergency without congestive heart failure Is this a current diagnosis for this admission?: Yes (3) Nonobstructive coronary artery disease Is this a current diagnosis for this admission?: Yes (4) Obesity (BMI 30.0-34.9) Is this a current diagnosis for this admission?: Yes - Additional Information Home Medications: Carvedilol [Coreg 12.5 mg Tablet] 12.5 mg PO Q12 01/20/19 Furosemide [Lasix 20 mg Tablet] 20 mg PO DAILY 01/20/19 Hydralazine HCl [Apresoline 50 mg Tablet] 50 mg PO Q8 01/20/19 History of Present Illness History of Present Illness: AMIE VARGAS is a 33 year old male with a PMH of HTN, asthma, and personal history of CHF who presented with chest pain and elevated blood pressures. He says he has been having left sided chest pain in the past 3 days, 4/10 in intensity, non-radiating and described as tightness. He also reports it is exertional. He says he has also been short of breath in the same time period when he walks beyond 50 ft. Denies PND or orthopnea. He does report of abdominal bloating as well. Denies history of GERD. In the ER, blood pressures were elevated 201/129. EKG shows T wave inversions on the lateral leads with normal troponins. He was given a dose of Lasix and nitro. Upon my encounter, he is chest pain free and is comfortable. Repeat blood pressure is 175/125. He says he was told by a physician last year that he has CHF but is not able to tell me more details. He does say he had a cath done at [facility] [place], [place] in July 2018 and another cath done in [place], [place] in Nov 2017. He says he was told there was some mild disease and did not require any stenting. Hospital Course Hospital Course: This is 73 years old black male patient with past medical history of obesity, hypertension and history of congestive heart failure as reported by the patient himself presented with chief complaint of chest pain. The patient described the chest pain stabbing type localized to his left side nonradiating. When he presented to ER his blood pressure was 175/125. Patient has been started on nitroglycerin drip. Initially I started him with metoprolol 100 mg p.o. twice daily and hydralazine 50 mg twice daily. With metoprolol and hydralazine the blood pressure slightly improved so I have to add additional antihypertensive agents this including hydrochlorothiazide 25 mg p.o. daily and lisinopril 20 mg twice a day. He has echocardiogram which shows severely reduced left ventricular function, global hypokinesis of the left ventricle and his ejection fraction is less than 15%. I consulted who evaluated the patient and ordered for him to wear a LifeVest. He also recommended echocardiogram after 3 months. I changed his metoprolol to carvedilol 25 mg twice daily and also started him on isosorbide dinitrate 20 mg 3 times daily. His latest blood pressure is 106/69. I will send him home with Coreg 25 mg twice daily, Lasix 40 mg p.o. daily, lisinopril 20 mg p.o. daily, Lipitor 80 mg p.o. nightly, isosorbide dinitrate 20 mg p.o. daily and hydralazine 50 mg p.o. 3 times daily. He needs follow-up with marriage and family social worker in 1 week. Physical Exam Vital Signs: Temp Pulse Resp BP Pulse Ox 97.2 F 67 16 108/69 92 01/23/19 07:21 01/23/19 07:21 01/23/19 07:21 01/23/19 07:21 01/23/19 07:21 Intake & Output 01/22/19 01/23/19 01/24/19 06:59 06:59 06:59 Intake Total 909 909 Balance 909 909 Weight 92.6 kg 92.1 kg General appearance: PRESENT: no acute distress, well-developed, well-nourished Head exam: PRESENT: atraumatic, normocephalic Eye exam: PRESENT: conjunctiva pink, EOMI, PERRLA. ABSENT: scleral icterus Ear exam: PRESENT: normal external ear exam Mouth exam: PRESENT: moist, tongue midline Neck exam: ABSENT: carotid bruit, JVD, lymphadenopathy, thyromegaly Respiratory exam: PRESENT: clear to auscultation curtis. ABSENT: rales, rhonchi, wheezes Cardiovascular exam: PRESENT: RRR. ABSENT: diastolic murmur, rubs, systolic murmur Pulses: PRESENT: normal dorsalis pedis pul Vascular exam: PRESENT: normal capillary refill GI/Abdominal exam: PRESENT: normal bowel sounds, soft. ABSENT: distended, guarding, mass, organolmegaly, rebound, tenderness Rectal exam: PRESENT: deferred Extremities exam: PRESENT: full ROM. ABSENT: calf tenderness, clubbing, pedal edema Neurological exam: PRESENT: alert, awake, oriented to person, oriented to place, oriented to time, oriented to situation, CN II-XII grossly intact. ABSENT: motor sensory deficit Psychiatric exam: PRESENT: appropriate affect, normal mood. ABSENT: homicidal ideation, suicidal ideation Skin exam: PRESENT: dry, intact, warm. ABSENT: cyanosis, rash Results Laboratory Results: 01/18/19 05:05 01/23/19 06:12 01/22/19 01/23/19 10:45 06:12 Sodium 138.1 Potassium 3.4 L Chloride 97 L Carbon Dioxide 31 H Anion Gap 10 BUN 19 Creatinine 1.51 H Est GFR ( Amer) > 60 Est GFR (Non-Af Amer) 53 L Glucose 98 Calcium 9.6 Triglycerides 112 Cholesterol 203.79 H LDL Cholesterol Direct 140 H VLDL Cholesterol 22.0 HDL Cholesterol 36 L 01/18/19 01/18/19 05:05 08:50 Troponin I < 0.012 < 0.012 NT-Pro-B Natriuret Pep 2250 H Impressions: Chest X-Ray 01/18/19 05:30 IMPRESSION: Clear lungs. Qualifiers - * PATIENT BEING DISCHARGED WITH ANY OF THE FOLLOWING DIAGNOSIS: Heart Failure VTE patient discharged on overlapping Therapy?: No Reason(s) for not prescribing Overlap Therapy:: Not indicated Stroke Pt being discharged on Anti-thrombolytic therapy?: No Reason(s) for not prescribing Anti-thrombolytic therapy:: Not indicated Stroke Pt being discharged on Anti-coagulation therapy?: No Reason(s) for not prescribing Anti-coagulation therapy:: Not indicated Stroke Pt being discharged on Statins?: No Reason(s) for not prescribing Statins therapy:: Not indicated W[place] Pt being discharged on Aspirin therapy?: No Reason(s) for not prescribing Aspirin therapy:: Not indicated W[place] Pt being discharged on Statins?: No Reason(s) for not prescribing Statin therapy:: Not indicated [place] Pt discharged ACEI/ARBS?: No Reason(s) for not prescribing ACEI/ARBS:: Not indicated HF Pt being discharged on ACEI for LVEF less than 40%?: Yes HF Pt being discharged on ARBS for LVEF less than 40%?: Yes HF Pt with Afib discharged with Warfarin?: No Reason(s) for not prescribing Warfarin:: Not indicated HF Pt discharged on evidence-based Beta Riana:: Yes
[2019-01-23] MEDS: FUROSEMIDE 40 MG TABLET PO SCH (10:51)
[2019-01-23] MEDS: LISINOPRIL 10 MG TABLET PO SCH (10:52)
[2019-01-23] MEDS: HYDROCHLOROTHIAZIDE 25 MG TABLET PO SCH (10:52)
[2019-01-23] MEDS: CARVEDILOL 12.5 MG TABLET PO SCH (10:52)
[2019-01-23 14:37] VITALS: BP 135/90
== END 2019-01-23 14:40 | disposition home or self-care (01) | DRG 305 ==
LOC: ER 23:48 → EH 01-18 10:17 → 3S 01-18 18:25
PROVIDERS: ADMIT Internal Medicine; ATTEND Internal Medicine
PROC: 3E0F73Z Introduction of Anti-inflammatory into Respiratory Tract, Via Natural or Artificial Opening (ICD-10-PCS; principal; 2019-01-18)
DX: I16.1 Hypertensive emergency (principal); I25.10 Atherosclerotic heart disease of native coronary artery without angina pectoris; E66.9 Obesity, unspecified; N18.9 Chronic kidney disease, unspecified; F17.210 Nicotine dependence, cigarettes, uncomplicated; I12.9 Hypertensive chronic kidney disease with stage 1 through stage 4 chronic kidney disease, or unspecified chronic kidney disease; I25.5 Ischemic cardiomyopathy; I25.2 Old myocardial infarction; Z68.30 Body mass index [BMI] 30.0-30.9, adult; Z87.891 Personal history of nicotine dependence; Z79.899 Other long term (current) drug therapy; Z91.013 Allergy to seafood; Z82.49 Family history of ischemic heart disease and other diseases of the circulatory system
CPT/HCPCS: 36415; 71045; 80048; 80053; 80061; 80307; 81001; 83690; 83880; 84484; 85025; 93005; 93010; 93306; 96374; 99291; J0360; J1652; J1940; J3490; J7620

== ENCOUNTER 2019-01-28 09:54 | Emergency (ER) | payer SELFPAY ==
[2019-01-28] MEDS ORDERED: NORMAL SALINE 1000 ML 1,000 ML IV ONE (10:12)
--- NOTE | 2019-01-28 10:14 | ER Document Report ---
ED Medical Screen (RME) - General Chief Complaint: Abdominal Pain Stated Complaint: ABDOMINAL PAIN/DIARRHEA/HEADACHE Time Seen by Provider: 01/28/19 10:10 Mode of Arrival: Wheelchair Information source: Patient Notes: 34-year-old male presents to ED for epigastric pain that started this morning. He states the diarrhea started yesterday between yesterday and today he is probably had about 20 stools. He states that he was seen in the emergency room on Wednesday and they increased his fluid pill which she is on Lasix from 20 mg to 40 mg. He states he has had more stools ever since they increased his fluid pill. He does have a history of high blood pressure heart catheterization cholesterol asthma pneumonia. He states they did not find anything on a heart catheterization. He also has reflux disease. Patient is alert oriented respirations regular and unlabored speaking in full sentences. I have greeted and performed a rapid initial assessment of this patient. A comprehensive ED assessment and evaluation of the patient, analysis of test results and completion of medical decision making process will be conducted by an additional ED providers. TRAVEL OUTSIDE OF THE [place] IN LAST 30 DAYS: No - Related Data Allergies/Adverse Reactions: shellfish derived Allergy (Verified 01/28/19 09:58) Past Medical History - Past Medical History Cardiac Medical History: Reports: Hx Congestive Heart Failure, Hx Heart Attack - 2019, Hx Hypertension Renal/ Medical History: Denies: Hx Peritoneal Dialysis Psychiatric Medical History: Denies: Hx Depression Past Surgical History: Reports: Hx Cardiac Catheterization Physical Exam - Vital signs Vitals: Temp Pulse Resp BP Pulse Ox 97.6 F 86 16 162/102 H 98 01/28/19 10:03 01/28/19 10:03 01/28/19 10:03 01/28/19 10:03 01/28/19 10:03 Course - Vital Signs Vital signs: Temp Pulse Resp BP Pulse Ox 97.6 F 86 16 162/102 H 98 01/28/19 10:03 01/28/19 10:03 01/28/19 10:03 01/28/19 10:03 01/28/19 10:03
[2019-01-28 11:22] LABS: ABSOLUTE EOSINOPHILS # (AUTO) 0.1 10^3/uL (0.0-0.6); ABSOLUTE LYMPHOCYTES (AUTO) 1.1 10^3/uL (0.5-4.7); ABSOLUTE MONOCYTES (AUTO) 0.4 10^3/uL (0.1-1.4); ABSOLUTE NEUT (AUTO) 5.1 10^3/uL (1.7-8.2); BASOPHILS % (AUTO) 0.3 % (0-2); HEMATOCRIT 43.3 % (37.9-51.0); HEMOGLOBIN 14.4 g/dL (13.5-17.0); LYMPHOCYTES % (AUTO) 15.9 % (13-45); MEAN CORPUSCULAR HEMOGLOBIN 27.6 pg (27.0-33.4); MEAN CORPUSCULAR HGB CONC 33.3 g/dL (32.0-36.0); MEAN CORPUSCULAR VOLUME 83 fl (80-97); MONOCYTES % (AUTO) 6.4 % (3-13); PLATELET COUNT 280 10^3/uL (150-450); RED BLOOD COUNT 5.23 10^6/uL (4.35-5.55); RED CELL DISTRIBUTION WIDTH 14.1 % (11.5-14.0); SEGMENTED NEUTROPHILS % (AUTO) 76.4 % (42-78); TOTAL CELLS COUNTED % (AUTO) 100 %; WHITE BLOOD COUNT 6.6 10^3/uL (4.0-10.5)
--- NOTE | 2019-01-28 11:27 | ER Document Report ---
ED General - General Chief Complaint: Abdominal Pain Stated Complaint: ABDOMINAL PAIN/DIARRHEA/HEADACHE Time Seen by Provider: 01/28/19 10:10 Mode of Arrival: Wheelchair TRAVEL OUTSIDE OF THE [place] IN LAST 30 DAYS: No - HPI Notes: Patient is a 33-year-old male with a history of HTN, asthma, CHF (ejection fraction <15%) who presents the emergency department complaining of epigastric abdominal cramping with associated watery diarrhea over the past 24 hours. Patient states that his abdominal cramping has since resolved. He is still able to eat and drink, but does have a decreased p.o. intake. He is urinating normally. Pain would never radiate. No surgical history to his abdomen. He was admitted about 10 days ago and had a cardiac evaluation and had his medications adjusted and was told to be on LifeVest at that time as well because of the ejection fraction of less than 15%. Patient states that he has been taking his medicines as directed and has not had any recurring shortness of breath or chest pain that he was admitted for prior. Denies any headache, fever, neck pain, URI, sore throat, chest pain, palpitations, syncope, cough, shortness of breath, wheeze, dyspnea, nausea/vomiting, urinary retention, dysuria, hematuria, back pain, or rash. - Related Data Allergies/Adverse Reactions: shellfish derived Allergy (Verified 01/28/19 09:58) Past Medical History - General Information source: Patient - Social History Smoking Status: Former Smoker Chew tobacco use (# tins/day): No Frequency of alcohol use: Rare Drug Abuse: None Family History: Hypertension Patient has suicidal ideation: No Patient has homicidal ideation: No - Past Medical History Cardiac Medical History: Reports: Hx Congestive Heart Failure, Hx Heart Attack - 2019, Hx Hypertension Renal/ Medical History: Denies: Hx Peritoneal Dialysis GI Medical History: Reports: Hx Gastroesophageal Reflux Disease Psychiatric Medical History: Denies: Hx Depression Past Surgical History: Reports: Hx Cardiac Catheterization Review of Systems - Review of Systems -: Yes All other systems reviewed and negative Physical Exam - Vital signs Vitals: Temp Pulse Resp BP Pulse Ox 97.6 F 86 16 162/102 H 98 01/28/19 10:03 01/28/19 10:03 01/28/19 10:03 01/28/19 10:03 01/28/19 10:03 - Notes Notes: PHYSICAL EXAMINATION: GENERAL: Well-appearing, well-nourished and in no acute distress. HEAD: Atraumatic, normocephalic. EYES: Pupils equal round and reactive to light, extraocular movements intact, sclera anicteric, conjunctiva are normal. ENT: Nares patent and without discharge. oropharynx clear without exudates. No tonsilar hypertrophy or erythema. Moist mucous membranes. NECK: Normal range of motion, supple without lymphadenopathy LUNGS: Breath sounds clear to auscultation bilaterally and equal. No wheezes rales or rhonchi. HEART: Regular rate and rhythm without murmurs, rubs, gallops. ABDOMEN: Soft, nontender, nondistended abdomen. No guarding, no rebound. No masses appreciated. Normal bowel sounds present. No CVA tenderness bilaterall y. Maria neg. No tenderness at McBurney point. Musculoskeletal: FROM to passive/active. Strength 5+/5. Extremities: No cyanosis, clubbing, or edema b/l. Peripheral pulses 2+. Capillary refill less than 3 seconds. NEUROLOGICAL: Normal speech, normal gait. PSYCH: Normal mood, normal affect. SKIN: Warm, Dry, normal turgor, no rashes or lesions noted. Course - Re-evaluation Re-evalutation: 01/28/19 12:22 Patient is an afebrile, well-hydrated, 33-year-old male who presents with abdominal cramping and watery diarrhea, suspect viral. Vitals are acceptable without significant tachycardia, tachypnea, or hypoxia. PE is otherwise unremarkable. Patient's abdomen is soft and nontender. Patient states that he is feeling much better and has not had any diarrhea throughout his stay. He has no abdominal pain. CBC, CMP, lipase unremarkable. Patient was unable to provide us with a stool sample today. Outpt lab given to use if worsening sx's. No further labs or imaging warranted at this time. Patient was given 1 L of fluid and nausea medicine was ordered at triage. Low suspicion/risk for acute appendicitis, bowel obstruction, acute cholecystitis, perforated diverticulitis, incarcerated hernia, pancreatitis, perforated ulcer, peritonitis, sepsis, testicular torsion, or other systemic emergent condition at this time. Patient is aware that his condition can change from initial presentation and he needs to monitor symptoms closely and seek medical attention if any acute changes. Conservative measures otherwise for symptoms. Recheck with PCM in 2-3 days. Consider consult with a continuity tester. Return to the ED with any worsening/concerning symptoms otherwise as reviewed in discharge. Patient is in agreement. - Vital Signs Vital signs: Temp Pulse Resp BP Pulse Ox 97.6 F 86 16 162/102 H 98 01/28/19 10:03 01/28/19 10:03 01/28/19 10:03 01/28/19 10:03 01/28/19 10:03 - Laboratory Result Diagrams: 01/28/19 10:00 01/28/19 10:00 Laboratory results interpreted by me: 01/28/19 01/28/19 10:00 10:00 RDW 14.1 H BUN 23 H Creatinine 1.45 H Est GFR (Non-Af Amer) 56 L Glucose 129 H Total Protein 8.5 H Discharge - Discharge Clinical Impression: Diarrhea Qualifiers: Diarrhea type: unspecified type Qualified Code(s): R19.7 - Diarrhea, unspecified Abdominal pain Qualifiers: Abdominal location: upper abdomen, unspecified Qualified Code(s): R10.10 - Upper abdominal pain, unspecified Condition: Stable Disposition: HOME, SELF-CARE Instructions: Abdominal Pain ([facility]), Diarrhea, Nonspecific ([facility]) Additional Instructions: Maintain adequate fluid and food intake bland diet tylenol if needed Monitor for any worsening symptoms Make sure you are staying hydrated enough to urinate and have normal BM's Recheck with your PCM in 2-3 days Consider consult with Gastroenterology for ongoing/worsening symptoms Return to the ED with any worsening symptoms and/or development of fever, headache, chest pain, palpitations, syncope, shortness of breath, trouble breathing, abdominal pain, n/v/d, blood in stool/urine, weakness, or other worsening symptoms that are concerning to you. Forms: Elevated Blood Pressure, Follow-Up Laboratory Testing Referrals: ILAN CARTER MD [ACTIVE STAFF] - Follow up as needed SMITHA RANDOLPH MD [ACTIVE STAFF] - Follow up as needed
[2019-01-28 11:39] LABS: ALANINE AMINOTRANSFERASE 44 U/L (21-72); ALBUMIN 4.7 g/dL (3.5-5.0); ALKALINE PHOSPHATASE 71 U/L (38-126); ANION GAP 10 (5-19); ASPARTATE AMINO TRANSFERASE 45 U/L (17-59); BILIRUBIN,DIRECT 0.3 mg/dL (0.0-0.4); BILIRUBIN,TOTAL 1.3 mg/dL (0.2-1.3); BLOOD UREA NITROGEN 23 mg/dL (7-20); CALCIUM 9.2 mg/dL (8.4-10.2); CARBON DIOXIDE 26 mmol/L (22-30); CHLORIDE 104 mmol/L (98-107); GLUCOSE 129 mg/dL (75-110); POTASSIUM 4.2 mmol/L (3.6-5.0); SODIUM 139.5 mmol/L (137-145); TOTAL PROTEIN 8.5 g/dL (6.3-8.2)
[2019-01-28 12:33] VITALS: BP 137/81
== END 2019-01-28 12:39 | disposition home or self-care (01) ==
LOC: ER 09:54
DX: R10.13 Epigastric pain (principal); R19.7 Diarrhea, unspecified; I11.0 Hypertensive heart disease with heart failure; I50.9 Heart failure, unspecified; I25.2 Old myocardial infarction; J45.909 Unspecified asthma, uncomplicated; Z91.013 Allergy to seafood; Z87.891 Personal history of nicotine dependence
CPT/HCPCS: 99284; 96360; 96361; 36415; 83690; 85025; 80053; J7030

== ENCOUNTER 2019-05-14 19:44 | Emergency (ER) | payer OTHER ==
[2019-05-14] MEDS ORDERED: ISOSORB DINIT/HYDRALAZINE HCL 20-37.5 MG TABLET PO ONE ×2 (20:32→23:29)
[2019-05-14] MEDS ORDERED: ACETAMINOPHEN 325 MG TABLET PO ONE (20:32)
--- NOTE | 2019-05-14 20:34 | ER Document Report ---
ED Medical Screen (RME) - General Chief Complaint: Headache Stated Complaint: HEADACHE Time Seen by Provider: 05/14/19 20:20 Notes: Patient is a 34-year-old male with a past medical history of congestive heart failure and hypertension who presents the emergency department with a chief complaint of a headache. His headache started at noon today. Patient admits to not taking his isosorbide dinitrate/hydralazine today. He has not taken any Tylenol or ibuprofen to help with his pain. Exam: 5 out of 5 strength in all extremities. I have greeted and performed a rapid initial assessment of this patient. A comprehensive ED assessment and evaluation of the patient, analysis of test results and completion of medical decision making process will be conducted by an additional ED providers. TRAVEL OUTSIDE OF THE [place] IN LAST 30 DAYS: No - Related Data Allergies/Adverse Reactions: shellfish derived Allergy (Verified 01/28/19 09:58) Past Medical History - Social History Frequency of alcohol use: None Drug Abuse: None - Past Medical History Cardiac Medical History: Reports: Hx Congestive Heart Failure, Hx Heart Attack - 2019, Hx Hypertension Renal/ Medical History: Denies: Hx Peritoneal Dialysis GI Medical History: Reports: Hx Gastroesophageal Reflux Disease Psychiatric Medical History: Denies: Hx Depression Past Surgical History: Reports: Hx Cardiac Catheterization Physical Exam - Vital signs Vitals: Temp Pulse Resp BP Pulse Ox 98.0 F 76 18 170/124 H 96 05/14/19 19:54 05/14/19 19:54 05/14/19 19:54 05/14/19 19:54 05/14/19 19:54 Course - Vital Signs Vital signs: Temp Pulse Resp BP Pulse Ox 98.0 F 76 18 170/124 H 96 05/14/19 19:54 05/14/19 19:54 05/14/19 19:54 05/14/19 19:54 05/14/19 19:54
[2019-05-14 22:06] LABS: ALBUMIN 4.6 g/dL (3.5-5.0); ALKALINE PHOSPHATASE 50 U/L (38-126); ANION GAP 10 (5-19); ASPARTATE AMINO TRANSFERASE 23 U/L (17-59); BILIRUBIN,DIRECT 0.2 mg/dL (0.0-0.4); BILIRUBIN,TOTAL 0.7 mg/dL (0.2-1.3); BLOOD UREA NITROGEN 18 mg/dL (7-20); CALCIUM 9.6 mg/dL (8.4-10.2); CARBON DIOXIDE 26 mmol/L (22-30); CHLORIDE 103 mmol/L (98-107); GLUCOSE 106 mg/dL (75-110); POTASSIUM 3.8 mmol/L (3.6-5.0); TOTAL PROTEIN 8.3 g/dL (6.3-8.2)
[2019-05-14 22:33] LABS: ABSOLUTE EOSINOPHILS # (AUTO) 0.1 10^3/uL (0.0-0.6); ABSOLUTE LYMPHOCYTES (AUTO) 1.8 10^3/uL (0.5-4.7); ABSOLUTE MONOCYTES (AUTO) 0.5 10^3/uL (0.1-1.4); ABSOLUTE NEUT (AUTO) 3.8 10^3/uL (1.7-8.2); BASOPHILS % (AUTO) 0.5 % (0-2); EOSINOPHILS % (AUTO) 1.8 % (0-6); HEMATOCRIT 38.4 % (37.9-51.0); HEMOGLOBIN 12.8 g/dL (13.5-17.0); LYMPHOCYTES % (AUTO) 29.3 % (13-45); MEAN CORPUSCULAR HEMOGLOBIN 27.8 pg (27.0-33.4); MEAN CORPUSCULAR HGB CONC 33.3 g/dL (32.0-36.0); MEAN CORPUSCULAR VOLUME 84 fl (80-97); MONOCYTES % (AUTO) 7.3 % (3-13); PLATELET COUNT 263 10^3/uL (150-450); RED CELL DISTRIBUTION WIDTH 13.9 % (11.5-14.0); SEGMENTED NEUTROPHILS % (AUTO) 61.1 % (42-78); TOTAL CELLS COUNTED % (AUTO) 100 %; WHITE BLOOD COUNT 6.3 10^3/uL (4.0-10.5)
[2019-05-14] MEDS ORDERED: LISINOPRIL 10 MG TABLET PO ONE (23:34)
[2019-05-15] MEDS ORDERED: METOCLOPRAMIDE HCL INJ/PF 10 MG/2 ML SDV IV ONE (01:12)
--- NOTE | 2019-05-15 02:50 | RADIOLOGY REPORT (SQ) ---
EXAM DESCRIPTION: [facility]: CT HEAD WITHOUT IV CONTRAST CLINICAL HISTORY: 34 years Male; hypertension, headache TECHNIQUE: Noncontrast CT head. All CT scans at this facility use dose modulation, iterative reconstruction, and/or weight based dosing when appropriate to reduce radiation dose to as low as reasonably achievable. COMPARISON: None. FINDINGS: Mann matter, white matter, ventricles, and cisterns are within normal limits. No acute hemorrhage or mass effect. Visualized portions of paranasal sinuses and mastoids are clear. Visualized portions of the calvarium are within normal limits. IMPRESSION: 1. No acute intracranial findings.
--- NOTE | 2019-05-15 03:09 | ER Document Report ---
ED General - General Chief Complaint: Headache Stated Complaint: HEADACHE Time Seen by Provider: 05/14/19 20:20 Primary Care Provider: MILIND HENRY MD [Primary Care Provider] - Follow up as needed Notes: Patient is a 34-year old male that comes emergency department for chief complaint of headache. Headache started around noon. Patient denies head injury, he states it is a generalized throbbing headache. He denies visual changes, nausea, vomiting, neck pain, fever/chills, focal numbness or weakness. Reports intermittent headaches but he does not usually get bad headaches. He has a past medical history of hypertension and CHF, on Lasix and blood pressure medications, he states that he did not take his isosorbide dinitrate/hydralazine today because he thinks that it makes his blood pressure too low and he "feels bad". He has a follow-up with primary care tomorrow for adjustments of this. TRAVEL OUTSIDE OF THE [place] IN LAST 30 DAYS: No - Related Data Allergies/Adverse Reactions: shellfish derived Allergy (Verified 05/14/19 23:26) Past Medical History - Social History Smoking Status: Former Smoker Frequency of alcohol use: None Drug Abuse: None Family History: Hypertension Patient has suicidal ideation: No Patient has homicidal ideation: No - Past Medical History Cardiac Medical History: Reports: Hx Congestive Heart Failure, Hx Heart Attack - 2019, Hx Hypertension Renal/ Medical History: Denies: Hx Peritoneal Dialysis GI Medical History: Reports: Hx Gastroesophageal Reflux Disease Psychiatric Medical History: Denies: Hx Depression Past Surgical History: Reports: Hx Cardiac Catheterization Review of Systems - Review of Systems Constitutional: No symptoms reported EENT: No symptoms reported Cardiovascular: No symptoms reported Respiratory: No symptoms reported Gastrointestinal: No symptoms reported Genitourinary: No symptoms reported Male Genitourinary: No symptoms reported Musculoskeletal: No symptoms reported Skin: No symptoms reported Hematologic/Lymphatic: No symptoms reported Neurological/Psychological: See HPI Physical Exam - Vital signs Vitals: Temp Pulse Resp BP Pulse Ox 98.0 F 76 18 170/124 H 96 05/14/19 19:54 05/14/19 19:54 05/14/19 19:54 05/14/19 19:54 05/14/19 19:54 - Notes Notes: GENERAL: Alert, interacts well. HEAD: Normocephalic, atraumatic. EYES: Pupils equal, round, and reactive to light. Extraocular movements intact. ENT: Oral mucosa moist, tongue midline. Oropharynx unremarkable. Airway patent. Nares patent, no nasal septal hematoma LUNGS: Clear to auscultation bilaterally, no wheezes, rales, or rhonchi. No respiratory distress. HEART: Regular rate and rhythm. No murmur ABDOMEN: Soft, non-tender. Non-distended. EXTREMITIES: Moves all 4 extremities spontaneously. No edema, normal radial and dorsalis pedis pulses bilaterally. No cyanosis. BACK: no cervical, thoracic, lumbar midline tenderness. No saddle anesthesia, normal distal neurovascular exam. Moves all extremities in full range of motion. NEUROLOGICAL: Alert and oriented x3. Normal speech. Cranial nerves II through XII grossly intact. PSYCH: Normal affect, normal mood. SKIN: Warm, dry, normal turgor. No rashes or lesions noted. Course - Re-evaluation Re-evalutation: Patient is hypertensive. CT of the head performed and unremarkable. Neurological exam is normal. After treatment with Reglan the headache did actually completely resolved. He still had a headache when I saw him initially after triage and Tylenol however. His blood pressure stayed elevated but reportedly this is normal for patient. Patient has close follow-up. Because he is symptom-free I have very low suspicion of any acute intracranial abnormality or hypertensive emergency, patient will be discharged with close follow-up and return instructions. Patient states satisfaction and agreement. Stable at time of discharge. - Vital Signs Vital signs: Temp Pulse Resp BP Pulse Ox 97.4 F 80 15 183/113 H 99 05/15/19 03:47 05/15/19 03:47 05/15/19 03:47 05/15/19 03:47 05/15/19 03:47 - Laboratory Result Diagrams: 05/14/19 22:25 05/14/19 21:22 Laboratory results interpreted by me: 05/14/19 05/14/19 21:22 22:25 Hgb 12.8 L Creatinine 1.29 H Total Protein 8.3 H Discharge - Discharge Clinical Impression: Uncontrolled hypertension Headache Qualifiers: Headache type: unspecified Headache chronicity pattern: acute headache Intractability: not intractable Qualified Code(s): R51 - Headache Condition: Stable Disposition: HOME, SELF-CARE Additional Instructions: Your work-up, exam, and the response of your headache to treatment are reassuring. Your blood pressure needs better control, follow-up with your primary care for additional management, bring your reports from today. Return if you worsen including return of your headache, vomiting, or any other concerning or worsening symptoms. Referrals: MILIND HENRY MD [Primary Care Provider] - Follow up as needed
[2019-05-15 03:56] VITALS: BP 183/113
== END 2019-05-15 03:47 | disposition home or self-care (01) ==
LOC: ER 19:44
DX: R51 Headache (principal); I11.0 Hypertensive heart disease with heart failure; I50.9 Heart failure, unspecified; Z79.899 Other long term (current) drug therapy; Z87.891 Personal history of nicotine dependence; Z91.013 Allergy to seafood
CPT/HCPCS: 99284; 96374; 36415; 85025; 80053; 70450; J2765

== ENCOUNTER 2019-06-16 16:04 | Emergency (ER) | payer SELFPAY ==
[2019-06-16] MEDS ORDERED: ASPIRIN 81 MG TABLET, CHEWABLE PO ONE (17:01)
--- NOTE | 2019-06-16 17:01 | ER Document Report ---
ED Medical Screen (RME) - General Chief Complaint: Chest Pain Stated Complaint: HIGH BLOOD PRESSURE Time Seen by Provider: 06/16/19 16:58 Primary Care Provider: MILIND HENRY MD [Primary Care Provider] - Follow up as needed Mode of Arrival: Ambulatory Information source: Patient Notes: 34-year-old male presented to ED for complaint of high blood pressure out of 1 o f his blood pressure medicine and a fluttering feeling in his chest for couple days. He states he had this feeling before and the [place] [facility] put him on a medicine that he had to stop because it dropped his blood pressure to. He states he went to the but our [place] [facility] and told him that he stopped but he told him to take it again and his blood pressure dropped again. Patient states he sometimes smokes drinks on the weekends but does not do any drugs he works at [employer] and lives alone. Patient is alert oriented respirations regular and unlabored speaking in full sentences. I have greeted and performed a rapid initial assessment of this patient. A comprehensive ED assessment and evaluation of the patient, analysis of test results and completion of medical decision making process will be conducted by an additional ED providers. TRAVEL OUTSIDE OF THE [place] IN LAST 30 DAYS: No - Related Data Allergies/Adverse Reactions: shellfish derived Allergy (Verified 06/16/19 16:05) Past Medical History - Social History Frequency of alcohol use: Social Drug Abuse: None - Past Medical History Cardiac Medical History: Reports: Hx Congestive Heart Failure, Hx Heart Attack - 2019, Hx Hypertension Renal/ Medical History: Denies: Hx Peritoneal Dialysis GI Medical History: Reports: Hx Gastroesophageal Reflux Disease Psychiatric Medical History: Denies: Hx Depression Past Surgical History: Reports: Hx Cardiac Catheterization Physical Exam - Vital signs Vitals: Temp Pulse Resp BP Pulse Ox 98.9 F 77 18 193/124 H 95 06/16/19 16:27 06/16/19 16:27 06/16/19 16:27 06/16/19 16:27 06/16/19 16:27 Course - Vital Signs Vital signs: Temp Pulse Resp BP Pulse Ox 98.9 F 77 18 193/124 H 95 06/16/19 16:27 06/16/19 16:27 06/16/19 16:27 06/16/19 16:27 06/16/19 16:27 Doctor's Discharge - Discharge Referrals: MILIND HENRY MD [Primary Care Provider] - Follow up as needed
[2019-06-16 17:15] LABS: APPEARANCE,URINE CLEAR; BILIRUBIN,URINE NEGATIVE (NEGATIVE); COLOR,URINE YELLOW; GLUCOSE, URINE NEGATIVE (NEGATIVE); KETONES,URINE NEGATIVE (NEGATIVE); LEUKOCYTE ESTERASE,URINE NEGATIVE (NEGATIVE); NITRITE,URINE NEGATIVE (NEGATIVE); PROTEIN,URINE NEGATIVE (NEGATIVE); URINE SPECIFIC GRAVITY 1.018; UROBILINOGEN,URINE NEGATIVE mg/dL (<2.0)
[2019-06-16 17:26] LABS: ABSOLUTE BASOPHILS # (AUTO) 0.1 10^3/uL (0.0-0.2); ABSOLUTE EOSINOPHILS # (AUTO) 0.1 10^3/uL (0.0-0.6); ABSOLUTE LYMPHOCYTES (AUTO) 1.6 10^3/uL (0.5-4.7); ABSOLUTE MONOCYTES (AUTO) 0.4 10^3/uL (0.1-1.4); ABSOLUTE NEUT (AUTO) 5.1 10^3/uL (1.7-8.2); BASOPHILS % (AUTO) 0.7 % (0-2); EOSINOPHILS % (AUTO) 1.7 % (0-6); HEMATOCRIT 39.3 % (37.9-51.0); HEMOGLOBIN 13.1 g/dL (13.5-17.0); LYMPHOCYTES % (AUTO) 22.1 % (13-45); MEAN CORPUSCULAR HEMOGLOBIN 27.5 pg (27.0-33.4); MEAN CORPUSCULAR HGB CONC 33.4 g/dL (32.0-36.0); MEAN CORPUSCULAR VOLUME 82 fl (80-97); MONOCYTES % (AUTO) 5.6 % (3-13); PLATELET COUNT 249 10^3/uL (150-450); RED BLOOD COUNT 4.77 10^6/uL (4.35-5.55); RED CELL DISTRIBUTION WIDTH 13.9 % (11.5-14.0); SEGMENTED NEUTROPHILS % (AUTO) 69.9 % (42-78); TOTAL CELLS COUNTED % (AUTO) 100 %; WHITE BLOOD COUNT 7.3 10^3/uL (4.0-10.5)
[2019-06-16 17:28] LABS: URINE AMPHETAMINES SCREEN NEGATIVE; URINE BARBITURATES SCREEN NEGATIVE; URINE BENZODIAZEPINES SCREEN NEGATIVE; URINE COCAINE SCREEN NEGATIVE; URINE MARIJUANA (THC) SCREEN NEGATIVE; URINE METHADONE SCREEN NEGATIVE; URINE PHENCYCLIDINE SCREEN NEGATIVE
--- NOTE | 2019-06-16 17:36 | RADIOLOGY REPORT (SQ) ---
EXAM DESCRIPTION: CHEST 2 VIEWS COMPLETED DATE/TIME: 06/16/2019 5:18 pm REASON FOR STUDY: flutter feeling in chest htn COMPARISON: 04/20/2019 EXAM PARAMETERS: NUMBER OF VIEWS: two views TECHNIQUE: Digital Frontal and Lateral radiographic views of the chest acquired. RADIATION DOSE: NA LIMITATIONS: none FINDINGS: LUNGS AND PLEURA: No opacities, masses or pneumothorax. No pleural effusion. MEDIASTINUM AND HILAR STRUCTURES: No masses or contour abnormalities. HEART AND VASCULAR STRUCTURES: Heart normal size. No evidence for failure. BONES: No acute findings. HARDWARE: None in the chest. OTHER: No other significant finding. IMPRESSION: NO ACUTE RADIOGRAPHIC FINDING IN THE CHEST. TECHNICAL DOCUMENTATION: JOB ID: [id number] [employer]- All Rights Reserved Reading location - IP/workstation name: [email or web address]
[2019-06-16 17:43] LABS: ALBUMIN 4.6 g/dL (3.5-5.0); ALKALINE PHOSPHATASE 51 U/L (38-126); ANION GAP 10 (5-19); ASPARTATE AMINO TRANSFERASE 32 U/L (17-59); BILIRUBIN,DIRECT 0.2 mg/dL (0.0-0.4); BILIRUBIN,TOTAL 0.7 mg/dL (0.2-1.3); BLOOD UREA NITROGEN 13 mg/dL (7-20); CALCIUM 9.8 mg/dL (8.4-10.2); CARBON DIOXIDE 31 mmol/L (22-30); CHLORIDE 99 mmol/L (98-107); CREATINE KINASE 170 U/L (55-170); GLUCOSE 85 mg/dL (75-110); POTASSIUM 3.8 mmol/L (3.6-5.0); TOTAL PROTEIN 8.1 g/dL (6.3-8.2)
[2019-06-16 17:55] LABS: CREATINE KINASE MB 0.41 ng/mL (<4.55); TROPONIN I 0.033 ng/mL
--- NOTE | 2019-06-16 19:57 | ER Document Report ---
ED General - General Chief Complaint: Chest Pain Stated Complaint: HIGH BLOOD PRESSURE Time Seen by Provider: 06/16/19 16:58 Primary Care Provider: MILIND HENRY MD [ACTIVE STAFF] - 06/19/19 Mode of Arrival: Ambulatory Notes: Patient is a pleasant 34-year-old male who presents with complaint of high blood pressure. Patient has a history of high blood pressure. He is out of his lisinopril medication. He is also almost out of his carvedilol. Patient says his blood pressures been running high since he ran out. Today's film will be dyspneic. He also ran out of his Lasix and he thinks he might be retaining some fluid. There is no mention of possible chest pain however the patient says is not actually had chest pain. He says a little bit of tightness when he is short of breath. He denies history of [place]. He is actually had a few cardiac cath. Most recent cardiac cath was done a year ago and showed no blockages. He denies recent fevers or infections. He has no other complaints at this time. TRAVEL OUTSIDE OF THE [place] IN LAST 30 DAYS: No - Related Data Allergies/Adverse Reactions: shellfish derived Allergy (Verified 06/16/19 16:05) Past Medical History - General Information source: Patient - Social History Smoking Status: Current Some Day Smoker Frequency of alcohol use: Social Drug Abuse: None Family History: Hypertension Patient has suicidal ideation: No Patient has homicidal ideation: No - Past Medical History Cardiac Medical History: Reports: Hx Congestive Heart Failure, Hx Heart Attack - 2019, Hx Hypertension Renal/ Medical History: Denies: Hx Peritoneal Dialysis GI Medical History: Reports: Hx Gastroesophageal Reflux Disease Psychiatric Medical History: Denies: Hx Depression Past Surgical History: Reports: Hx Cardiac Catheterization Review of Systems - Review of Systems Notes: My Normal Review Basic REVIEW OF SYSTEMS: CONSTITUTIONAL : Denies fever, chills, or sweats. Denies recent illness. EENT: Denies eye, ear, throat, or mouth pain or symptoms. Denies nasal or sinus congestion. CARDIOVASCULAR: Denies tightness RESPIRATORY: Denies cough, cold, or chest congestion. Denies shortness of breath, difficulty breathing, or wheezing. GASTROINTESTINAL: Denies abdominal pain. Denies nausea, vomiting, or diarrhea. MUSCULOSKELETAL: Denies neck or back pain or joint pain or swelling. SKIN: Denies rash or skin lesions. NEUROLOGICAL: Denies altered mental status or loss of consciousness. Denies headache. Denies weakness or paralysis or loss of use of either side. Denies problems with gait or speech. Denies sensory or motor loss. ALL OTHER SYSTEMS REVIEWED AND NEGATIVE. Physical Exam - Vital signs Vitals: Temp Pulse Resp BP Pulse Ox 98.9 F 77 18 193/124 H 95 06/16/19 16:27 06/16/19 16:27 06/16/19 16:27 06/16/19 16:27 06/16/19 16:27 - Notes Notes: General Appearance: Well nourished, alert, cooperative, no acute distress, no obvious discomfort. Well-appearing. Vitals: reviewed, See vital signs table. Head: no swelling or tenderness to the head Eyes: PERRL, EOMI, Conjuctiva clear Mouth: No decreasd moisture Lungs: No wheezing, No rales, No rhonci, No accessory muscle use, good air exchange bilaterally. Heart: Normal rate, Regular rythm, No murmur, no rub Abdomen: Normal BS, soft, No rigidity, No abdominal tenderness, No guarding, no rebound, no abdominal masses, no organomegaly Extremities: strength 5/5 in all extremities, good pulses in all extremities, no swelling or tenderness in the extremities, trace bilateral lower extremity edema. Skin: warm, dry, appropriate color, no rash Neuro: speech clear, oriented x 3, normal affect, responds appropriately to questions. Course - Re-evaluation Re-evalutation: 06/16/19 20:12 She presents with complaint of hypertension. He is been without his lisinopril for the last 2 days. He also has been out of his Lasix for approximately a week. He is also lost out of his carvedilol. He did bring his pill bottles with him. I have represcribed all of his medications and give him dosages here. I did read the previous triage note as well as the nurse practitioner note. I did ask about chest pain or shortness of breath. Patient says he does have some shortness of breath and tightness which she could be due to him being off his medications. He says that he currently feels well. He says he has not had any actual true chest pain. He has had previous heart caths. His last heart cath was less than a year ago and did not show any blockages per his report. Patient is followed by Dr. Henry and said he will call him to make a close follow-up appointment. I strongly encourage patient return to the ER immediately if he has pain, difficulty breathing, or if he feels like he is worsening in any way. Patient agrees with plan will be discharged home. Dictation of this chart was performed using voice recognition software; therefore, there may be some unintended grammatical errors. - Vital Signs Vital signs: Temp Pulse Resp BP Pulse Ox 98.6 F 72 18 186/106 H 97 06/16/19 20:30 06/16/19 20:30 06/16/19 20:30 06/16/19 20:30 06/16/19 20:30 - Laboratory Result Diagrams: 06/16/19 17:05 06/16/19 17:05 Laboratory results interpreted by me: 06/16/19 06/16/19 06/16/19 17:00 17:05 17:05 Hgb 13.1 L Carbon Dioxide 31 H Creatinine 1.39 H Est GFR (MDRD) Non-Af 58 L Urine Ascorbic Acid 40 H - EKG Interpretation by Me Additional EKG results interpreted by me: 06/16/19 19:56 EKG is reviewed and interpreted by me. EKG shows sinus rhythm with a rate of [address] segment elevation. Patient does have T wave inversions in multiple leads however this is unchanged comparison to his old EKG from April 20, 2019. [place] interval, QRS duration, QT intervals are within normal range. Discharge - Discharge Clinical Impression: Hypertension Qualifiers: Hypertension type: unspecified Qualified Code(s): I10 - Essential (primary) hypertension Condition: Good Disposition: HOME, SELF-CARE Additional Instructions: Please take medications as prescribed. Please call Dr. Henry's office to make a very close follow-up appointment. Please return to the ER immediately if you have chest pain, recurrent difficulty breathing, headaches, or if you feel like you are worsening in any way. Prescriptions: Carvedilol 25 mg PO DAILY #30 tablet Furosemide [Lasix 40 mg Tablet] 40 mg PO QAM #30 tablet Lisinopril [Prinivil 10 mg Tablet] 10 mg PO Q12 #60 tablet Referrals: MILIND HENRY MD [ACTIVE STAFF] - 06/19/19
[2019-06-16] MEDS ORDERED: CARVEDILOL 12.5 MG TABLET PO ONE (20:10)
[2019-06-16] MEDS ORDERED: FUROSEMIDE 40 MG TABLET PO ONE (20:10)
[2019-06-16] MEDS ORDERED: LISINOPRIL 10 MG TABLET PO ONE (20:10)
[2019-06-16] MEDS ORDERED: ALBUTEROL SULFATE HFA (90 MCG/PUFF) 8 GM MDI (1 MDI/ER DISP) IH ONE (20:11)
[2019-06-16 20:57] VITALS: BP 186/106
--- NOTE | 2019-06-18 18:36 | EKG REPORT ---
SEVERITY:- ABNORMAL ECG - SINUS ARRHYTHMIA, RATE 51-78 LEFT AXIS DEVIATION LVH WITH SECONDARY REPOLARIZATION ABNORMALITY ABNORMAL T, PROBABLE ISCHEMIA, LATERAL LEADS ANTERIOR ST ELEVATION, PROBABLY DUE TO LVH : Confirmed by: Blessing Ballesteros 18-Jun-2019 18:36:24
== END 2019-06-16 20:45 | disposition home or self-care (01) ==
LOC: ER 16:04
DX: I10 Essential (primary) hypertension (principal); R07.9 Chest pain, unspecified; F17.200 Nicotine dependence, unspecified, uncomplicated; I50.9 Heart failure, unspecified; I11.0 Hypertensive heart disease with heart failure; I25.2 Old myocardial infarction; Z91.013 Allergy to seafood
CPT/HCPCS: 93005; 36415; 82553; 82550; 85025; 80053; 81001; 84484; 80307; 71046; 93010; J3490; 99284

== ENCOUNTER 2019-08-25 14:15 | Emergency (ER) | payer OTHER ==
--- NOTE | 2019-08-25 16:08 | ER Document Report ---
ED Medical Screen (RME) - General Chief Complaint: High Blood Pressure Stated Complaint: BLOOD PRESSURE ISSUES Time Seen by Provider: 08/25/19 15:59 Notes: 34-year-old male with uncontrolled hypertension presents the emergency department for uncontrolled hypertension. Patient has been seen here in April and May and is followed by Dr. Baxter. In the triage area patient's blood pressure was 168/135. Patient is on 3 antihypertensives and furosemide but he ran out of his medication 3 days ago. Patient complains of shortness of breath and feels like "my pants are tighter". Exam: Well-appearing no acute distress, lungs clear to auscultation all chow, regular cardiac rate and rhythm. I have greeted and performed a rapid initial assessment of this patient. A comprehensive ED assessment and evaluation of the patient, analysis of test results and completion of medical decision making process will be conducted by an additional ED providers. TRAVEL OUTSIDE OF THE [place] IN LAST 30 DAYS: No - Related Data Allergies/Adverse Reactions: shellfish derived Allergy (Verified 06/16/19 16:05) Home Medications: Lisinopril 10mg PO q12 hrs. Furosemide 40mg PO qd. Carvedilol 25mg PO qd. Isosorb Dinit/Hydralazine Hcl 20-37.5mg 1 tab BERNARD q8 hrs Past Medical History - Social History Frequency of alcohol use: None Drug Abuse: None - Past Medical History Cardiac Medical History: Reports: Hx Congestive Heart Failure, Hx Heart Attack - 2019, Hx Hypertension Renal/ Medical History: Denies: Hx Peritoneal Dialysis GI Medical History: Reports: Hx Gastroesophageal Reflux Disease Psychiatric Medical History: Denies: Hx Depression Past Surgical History: Reports: Hx Cardiac Catheterization Physical Exam - Vital signs Vitals: Temp Pulse Resp BP Pulse Ox 98.3 F 87 18 182/124 H 96 08/25/19 14:54 08/25/19 14:54 08/25/19 14:54 08/25/19 14:54 08/25/19 14:54 Course - Vital Signs Vital signs: Temp Pulse Resp BP Pulse Ox 98.3 F 87 18 169/135 H 96 08/25/19 14:54 08/25/19 14:54 08/25/19 14:54 08/25/19 15:53 08/25/19 14:54
[2019-08-25 16:48] LABS: ABSOLUTE BASOPHILS # (AUTO) 0.1 10^3/uL (0.0-0.2); ABSOLUTE EOSINOPHILS # (AUTO) 0.3 10^3/uL (0.0-0.6); ABSOLUTE MONOCYTES (AUTO) 0.4 10^3/uL (0.1-1.4); ABSOLUTE NEUT (AUTO) 4.4 10^3/uL (1.7-8.2); BASOPHILS % (AUTO) 0.8 % (0-2); EOSINOPHILS % (AUTO) 3.6 % (0-6); HEMATOCRIT 40.5 % (37.9-51.0); HEMOGLOBIN 13.6 g/dL (13.5-17.0); LYMPHOCYTES % (AUTO) 27.6 % (13-45); MEAN CORPUSCULAR HGB CONC 33.5 g/dL (32.0-36.0); MEAN CORPUSCULAR VOLUME 84 fl (80-97); MONOCYTES % (AUTO) 5.9 % (3-13); PLATELET COUNT 277 10^3/uL (150-450); RED BLOOD COUNT 4.84 10^6/uL (4.35-5.55); RED CELL DISTRIBUTION WIDTH 13.9 % (11.5-14.0); SEGMENTED NEUTROPHILS % (AUTO) 62.1 % (42-78); TOTAL CELLS COUNTED % (AUTO) 100 %; WHITE BLOOD COUNT 7.1 10^3/uL (4.0-10.5)
[2019-08-25 16:50] LABS: APPEARANCE,URINE CLEAR; BILIRUBIN,URINE NEGATIVE (NEGATIVE); COLOR,URINE YELLOW; GLUCOSE, URINE NEGATIVE (NEGATIVE); KETONES,URINE NEGATIVE (NEGATIVE); LEUKOCYTE ESTERASE,URINE NEGATIVE (NEGATIVE); NITRITE,URINE NEGATIVE (NEGATIVE); PROTEIN,URINE 30 mg/dL (NEGATIVE); URINE SPECIFIC GRAVITY 1.021; UROBILINOGEN,URINE NEGATIVE mg/dL (<2.0)
[2019-08-25 17:09] LABS: ALBUMIN 4.6 g/dL (3.5-5.0); ALKALINE PHOSPHATASE 47 U/L (38-126); ANION GAP 10 (5-19); ASPARTATE AMINO TRANSFERASE 22 U/L (17-59); BILIRUBIN,DIRECT 0.1 mg/dL (0.0-0.4); BILIRUBIN,TOTAL 0.9 mg/dL (0.2-1.3); BLOOD UREA NITROGEN 14 mg/dL (7-20); CALCIUM 9.7 mg/dL (8.4-10.2); CARBON DIOXIDE 30 mmol/L (22-30); CHLORIDE 102 mmol/L (98-107); GLUCOSE 96 mg/dL (75-110); POTASSIUM 4.1 mmol/L (3.6-5.0); TOTAL PROTEIN 8.3 g/dL (6.3-8.2)
--- NOTE | 2019-08-25 17:09 | RADIOLOGY REPORT (SQ) ---
EXAM DESCRIPTION: CHEST 2 VIEWS COMPLETED DATE/TIME: 08/25/2019 4:50 pm REASON FOR STUDY: SOB, ?hx chf COMPARISON: TWO-VIEW CHEST 06/16/2019 EXAM PARAMETERS: NUMBER OF VIEWS: two views TECHNIQUE: Digital Frontal and Lateral radiographic views of the chest acquired. RADIATION DOSE: NA LIMITATIONS: none FINDINGS: LUNGS AND PLEURA: No opacities, masses or pneumothorax. No pleural effusion. MEDIASTINUM AND HILAR STRUCTURES: No masses or contour abnormalities. HEART AND VASCULAR STRUCTURES: Heart normal size. No evidence for failure. BONES: No acute findings. HARDWARE: None in the chest. OTHER: No other significant finding. IMPRESSION: NO ACUTE RADIOGRAPHIC FINDING IN THE CHEST. TECHNICAL DOCUMENTATION: JOB ID: [id number] [employer]- All Rights Reserved Reading location - IP/workstation name: [email or web address]
[2019-08-25 17:22] LABS: TROPONIN I 0.015 ng/mL
--- NOTE | 2019-08-25 18:06 | ER Document Report ---
ED General - General Chief Complaint: High Blood Pressure Stated Complaint: BLOOD PRESSURE ISSUES Time Seen by Provider: 08/25/19 15:59 Primary Care Provider: MILIND HENRY MD [Primary Care Provider] - Follow up as needed TRAVEL OUTSIDE OF THE [place] IN LAST 30 DAYS: No - HPI Notes: Patient is a 34-year-old male with a history of hypertension, CHF with ejection fraction less than 15% noted January 2019 who presents complaining of elevated blood pressure and being out of his medicines for the past 3 days. Patient states that on occasion he will have some mild shortness of breath with ambulation, but has not had any chest pains. Pt reports that he does feel this way on when he is not on his BP meds/fluid pill. He is able to eat and drink without difficulty. He is urinating normally and having normal bowel movements. Patient states he does have a mild headache right now. This is not the worst of his life and did not start as a thunderclap. No other concerns or com plaints. No history of CAD otherwise. Patient has been reported to have had a neg stress test within the past year. Denies any fever, neck pain, changes in vision/speech/mentation/hearing, URI, sore throat, chest pain, palpitations, syncope, cough, wheeze, dyspnea, abdominal pain, nausea/vomiting/diarrhea, urinary retention, dysuria, hematuria, or rash. - Related Data Allergies/Adverse Reactions: shellfish derived Allergy (Verified 06/16/19 16:05) Home Medications: Lisinopril 10mg PO q12 hrs. Furosemide 40mg PO qd. Ca rvedilol 25mg PO qd. Isosorb Dinit/Hydralazine Hcl 20-37.5mg 1 tab BERNARD q8 hrs Past Medical History - Social History Smoking Status: Never Smoker Frequency of alcohol use: None Drug Abuse: None Family History: Hypertension Patient has suicidal ideation: No Patient has homicidal ideation: No - Past Medical History Cardiac Medical History: Reports: Hx Congestive Heart Failure, Hx Heart Attack - 2019, Hx Hypertension Pulmonary Medical History: Reports: Hx Asthma Renal/ Medical History: Denies: Hx Peritoneal Dialysis GI Medical History: Reports: Hx Gastroesophageal Reflux Disease Psychiatric Medical History: Denies: Hx Depression Past Surgical History: Reports: Hx Cardiac Catheterization Review of Systems - Review of Systems -: Yes All other systems reviewed and negative Physical Exam - Vital signs Vitals: Temp Pulse Resp BP Pulse Ox 98.3 F 87 18 182/124 H 96 08/25/19 14:54 08/25/19 14:54 08/25/19 14:54 08/25/19 14:54 08/25/19 14:54 - Notes Notes: PHYSICAL EXAMINATION: GENERAL: Well-appearing, well-nourished and in no acute distress. HEAD: Atraumatic, normocephalic. EYES: Pupils equal round and reactive to light, extraocular movements intact, sclera anicteric, conjunctiva are normal. ENT: Nares patent and without discharge. oropharynx clear without exudates. No tonsilar hypertrophy or erythema. Moist mucous membranes. NECK: Normal range of motion, supple without lymphadenopathy LUNGS: Breath sounds clear to auscultation bilaterally and equal. No wheezes rales or rhonchi. HEART: Regular rate and rhythm without murmurs, rubs, gallops. ABDOMEN: Soft, nontender, nondistended abdomen. No guarding, no rebound. Normal bowel sounds present. Musculoskeletal: FROM to passive/active. Strength 5+/5. B[place]o neg. No asymmetry to LE's. Extremities: No cyanosis, clubbing, or edema b/l. Peripheral pulses 2+. Capillary refill less than 3 seconds. NEUROLOGICAL: Normal speech, normal gait. Cranial nerves grossly intact. PSYCH: Normal mood, normal affect. SKIN: Warm, Dry, normal turgor, no rashes or lesions noted. Course - Re-evaluation Re-evalutation: 08/25/19 20:20 Patient is an afebrile, well-hydrated 34-year-old male who presents to the ED with elevated BP and occ sob (not different than baseline d/t EF <15%). Vitals are acceptable without any significant tachycardia, tachypnea, or hypoxia. PE is otherwise unremarkable. Patient is nontoxic-appearing and is tolerating p.o. without any difficulties. Pt is currently asymptomatic. He has been out of his BP meds for the past few days. CBC, CMP, EKG/cardiac enzymes 2, BNP, chest x- ray are all unremarkable for any acute pathology. Patient does not have any chest pain, dyspnea, or shortness of breath. Patient's presentation and symptomatology creates low suspicion for ACS, PE, pneumothorax, pericarditis, dissection, respiratory compromise, severe dehydration, sepsis, meningitis, or other systemic emergent condition at this time. Patient is aware that his condition can change from initial presentation and he needs to monitor symptoms closely and seek medical attention for any acute changes. Pt is feeling better and would like to go home. Rx for his BP meds. Recommend conservative measures for symptoms. Recheck with your PCM in 2-3 days. Pt has close f/u with his PCM and good communications with him as well. Consider consult with Cardiology. Return to the ED with any worsening/concerning symptoms otherwise as reviewed in discharge. Patient is in agreement. - Vital Signs Vital signs: Temp Pulse Resp BP Pulse Ox 98.1 F 87 12 189/129 H 98 08/25/19 19:20 08/25/19 14:54 08/25/19 19:36 08/25/19 19:36 08/25/19 19:36 - Laboratory Result Diagrams: 08/25/19 16:15 08/25/19 16:15 Laboratory results interpreted by me: 08/25/19 08/25/19 08/25/19 16:15 16:15 16:15 Creatinine 1.57 H Est GFR (MDRD) Non-Af 51 L NT-Pro-B Natriuret Pep 345 H Total Protein 8.3 H Urine Protein 30 H Discharge - Discharge Clinical Impression: Elevated blood pressure reading Condition: Stable Disposition: HOME, SELF-CARE Additional Instructions: Maintain adequate fluid and food intake Take home medications as directed Low sodium/fat diet Monitor blood pressure daily and keep a log Monitor symptoms for any acute changes Recheck with your PCM in 2-3 days Consider a follow-up with cardiology Return to the ED with any worsening symptoms and/or development of fever, headache, chest pain, palpitations, syncope, shortness of breath, trouble breathing, abdominal pain, n/v/d, blood in stool/urine, loss of control of bowel/bladder, urinary retention, muscle weakness/paralysis, numbness/tingling, or other worsening symptoms that are concerning to you. Prescriptions: Isosorb Dinit/Hydralazine HCl [Bidil 20-37.5 mg Tablet] 1 tab PO Q8 #90 tablet Carvedilol [Coreg 25 mg Tablet] 1 tab PO DAILY #30 tab Furosemide [Lasix 40 mg Tablet] 40 mg PO QAM #30 tablet Lisinopril [Prinivil 10 mg Tablet] 10 mg PO BID #60 tablet Forms: Elevated Blood Pressure Referrals: MILIND HENRY MD [Primary Care Provider] - 08/28/19
[2019-08-25] MEDS ORDERED: METOPROLOL TARTRATE PF/INJ 5 MG/5 ML SDV IV ONE (19:31)
[2019-08-25 19:38] VITALS: BP 189/129
[2019-08-25] MEDS ORDERED: LISINOPRIL 10 MG TABLET PO ONE (19:53)
--- NOTE | 2019-08-26 11:41 | EKG REPORT ---
SEVERITY:- ABNORMAL ECG - SINUS RHYTHM LEFT AXIS DEVIATION LVH WITH SECONDARY REPOLARIZATION ABNORMALITY ST ELEVATION, PROBABLY DUE TO LVH : Confirmed by: Kelly Kerr MD 26-Aug-2019 11:40:58
--- NOTE | 2019-08-26 11:41 | EKG REPORT ---
SEVERITY:- ABNORMAL ECG - SINUS RHYTHM LEFT AXIS DEVIATION LVH WITH SECONDARY REPOLARIZATION ABNORMALITY ANTERIOR ST ELEVATION, PROBABLY DUE TO LVH : Confirmed by: Kelly Kerr MD 26-Aug-2019 11:41:03
== END 2019-08-25 20:47 | disposition home or self-care (01) ==
LOC: ER 14:15
DX: I11.0 Hypertensive heart disease with heart failure (principal); I50.9 Heart failure, unspecified; Z79.899 Other long term (current) drug therapy; I25.2 Old myocardial infarction; R51 Headache; J45.909 Unspecified asthma, uncomplicated; Z91.013 Allergy to seafood
CPT/HCPCS: 93005; 36415; 85025; 80053; 81001; 84484; 83880; 71046; 93010; J3490; 96374; 99284